=== PATIENT | female | born 1985 | race American Indian/Alaskan Native ===

== ENCOUNTER 2017-10-20 08:29 | Day surgery (SDC) | payer BC ==
[2017-10-17 12:12] VITALS: BMI 34.0
[2017-10-20] MEDS ORDERED: Propofol 10 mg/ml Inj (20 ML) ONE ×2 (11:30→14:17)
[2017-10-20] MEDS ORDERED: Midazolam 2 MG/2 ML VIAL ONE (11:30)
[2017-10-20] MEDS ORDERED: ceFAZolin IV 2 gm in Dextrose 2 GM/50 ML BAG IVPB ONE (11:48)
[2017-10-20] MEDS ORDERED: Neostigmine Methylsulfate 3mg/3ml Syringe IV ONE (14:13)
[2017-10-20] MEDS: HYDROmorphone 0.5 mg/0.5 ml ISec IVP PRN ×3 (15:00→15:51)
[2017-10-20] MEDS ORDERED: Bupivacaine HCl 0.25% PF (10 ml) Inj ONE ×2 (15:50)
--- NOTE | 2017-10-20 16:12 | PCM.ANESB7 ---
Adductor Canal Block - Adductor Canal Block Date of Procedure: 10/20/17 Anesthiologist: Maddi Pre-Procedure Diagnosis: s/p right knee arthroscopy with medial meniscus repair Post-Procedure Diagnosis: same Procedure Performed: Adductor Canal Block Right - Procedure Adductor Canal Block: The procedure was explained to the patient that it is for the post-operative pain management. Consent was obtained after a thorough discussion with the patient regarding the benefits and possible complications of local anesthetic adductor canal block of the femoral nerve. Standard monitors, as defined by the ASA, were applied to the patient. Time-out was held with the PACU nurse to confirm the appropriate block. After applying supplemental oxygen, the patient was placed in supine position with and the operative leg was flexed slightly at the knee and externally rotated as needed, and was kept anatomically stable. The mid-thigh of the right lower extremity was exposed. The ultrasound transducer was then applied transversely along the medial aspect, about midway down the thigh and the femoral artery and vein were identified in appropriate relation with the sartorius muscle. At this time, the femoral nerve was visualized lateral to the femoral artery within the canal. After thorough identification, this area area was prepped with Chloroprep solution. At this point, a #22 gauge Stimuplex 4-inch needle was inserted in-plane in a tygomve-gb-evhbid orientation, and advanced toward the femoral nerve. Advancement was performed carefully under constant direct ultrasound visualization. After negative aspiration, 5cc of 0.25% bupivacaine was injected and this was followed with 25cc of 0.25%bupivacaine . Under ultrasound guidance the local anesthetics were observed spreading around the femoral nerve. The needle was removed intact and sterile dressing was applied. The patient had stable vital signs, was conscious and in no apparent distress. The patient tolerated the femoral nerve block well with stable vital signs.
--- NOTE | 2017-10-20 17:32 | PCM.SURG1 ---
Surgeon's Initial Post Op Note - Surgeon's Notes Surgeon: Andera Bhardwaj MD Clinical Biostatistics Director: Shayan Bronson PA-C Type of Anesthesia: General Endo, [facility] Pre-Operative Diagnosis: Right knee: #1 bucket handle medial meniscus tear ( causing locked knee). #2 complex lateral meniscus tear. #3 ACL complete tear. #4 partial PCL tear. #5 chondromalacia. #6 synovitis. #7 Locked knee/ limited range of motion Operative Findings: Right knee: #1 bucket handle medial meniscus tear (causing locked knee). #2 complex lateral meniscus tear (posterior horn extending to posterior root /w hypermobility and complex white-white zone tearing). #3 ACL complete tear. #4 partial PCL tear (grade 1-2 w/ firm endpoint). 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 #6 synovitis. #7 Locked knee/ limited range of motion Post-Operative Diagnosis: Right knee: #1 bucket handle medial meniscus tear ( causing locked knee). #2 complex lateral meniscus tear (posterior horn extending to posterior root /w hypermobility and complex white-white zone tearing). #3 ACL complete tear. #4 partial PCL tear (grade 1-2 w/ firm endpoint). 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 #6 synovitis. #7 Locked knee / limited range of motion Operation Performed: Right knee Arthroscopic. #1 all inside medial meniscal repair. #2 partial lateral menisectomy w/ stabilization/repair. #3 chondroplasty trochlea. #4 extensive synovectomy & debridement ACL tear. #5 BASILIO. #6 PRP injection Specimen/Specimens Removed: Specimen= none. complications= none. Implants: Linvate[employer] all inside sequent meniscal repair system, 8 kits opened with placement of 26 implants in total for MMR, 4 implants for LMR Estimated Blood Loss: EBL {In ML}: 3 Blood Products Given: N/A Drains Used: No Drains Post-Op Condition: Good Date of Surgery/Procedure: 10/20/17 Time of Surgery/Procedure: 15:00
[2017-10-20 17:59] VITALS: RESP 16
[2017-10-20 18:04] VITALS: BP 136/80; PULSE 86; TEMP 98; O2SAT 97
--- NOTE | 2017-10-21 06:07 | OP ---
PROCEDURE DATE: 10/20/2017 PREOPERATIVE DIAGNOSES: Right knee: 1. Bucket handle medial meniscus tear (causing locked knee). 2. Complex lateral meniscal tear. 3. Anterior cruciate ligament complete tear. 4. Partial posterior cruciate ligament tear. 5. Chondromalacia. 6. Posttraumatic synovitis. 7. Locked knee/limited range of motion (15 degrees to 18 degrees). 8. Partial medial collateral ligament tear. 9. Prominent bone marrow contusion/stress fractures, anterior to mid lateral femoral condyle/ posterolateral proximal tibia/posterior medial proximal tibia. POSTOPERATIVE DIAGNOSES: Right knee: 1. Bucket handle medial meniscus tear (causing locked knee, white zone injury). 2. Complex lateral meniscal tear ( posterior horn complex tear extending to the posterior root with hypermobility and complex white zone tearing) . 3. Complete anterior cruciate ligament tear. 4. Partial posterior cruciate ligament tear (grade 1 to 2 with firm implant). 5. 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 6. Posttraumatic synovitis. 7. Locked knee/limited range of motion preoperatively 15 degrees to 18 degrees flexion arc. 8. Partial medial collateral ligament tear grade 2 firm implant. 9. Bone marrow contusion/stress fracture proximal tibia and lateral femoral condyle. PROCEDURES: Right knee arthroscopic: 1. All-inside bucket handle medial meniscal repair. 2. Partial lateral meniscectomy with stabilization. 3. Chondroplasty trochlea. 4. Extensive synovectomy and debridement of anterior cruciate ligament. 5. Manipulation under anesthesia. 6. Platelet-Rich Plasma injection. SURGEON: Andrea Bhardwaj MD BOOSTER PUMP OILER: Shayan Bronson PA-C. JUSTIFICATION FOR BOOSTER PUMP OILER: Sahyan Bronson is a certified physician certified pathology assistant whose skilled surgical service was an absolute necessity for successful completion of the procedure, as he provided skilled surgical assistance with positioning of the patient, positioning of extremity, management of surgical field, bucket handle meniscus tear reduction, and holding the meniscus tear in optimal position for all-inside meniscal repair successfully being carried out (without [employer] presence this part of the procedure could never have been done without an certified pathology assistant), handling all arthroscopic equipment and facilitating extensive synovectomy, debridement, partial lateral meniscectomy, and other arthroscopic procedures, wound closure, fitting and placement of postop hinged knee brace at the end of the procedure Shayan Bronson was present for the entire case and was in absolute necessity for successful completion of the procedure. TYPE OF ANESTHESIA: General endotracheal anesthesia with a postoperative regional nerve block. ANESTHESIA ADMINISTERED BY: Anesthesia staff in PACU. IMPLANTS: L[employer]atec all-inside Sequent meniscal repair system, 8 tips were opened in total with placement of 26 implants for the medial meniscal repair, 4 implants used for lateral meniscus stabilization. ESTIMATED BLOOD LOSS: 3 mL. DRAINS: None. COMPLICATIONS: None. SPECIMEN: None. DISPOSITION: The patient was extubated and transferred to the PACU in stable condition and tolerated the procedure well. INDICATIONS FOR SURGERY: The patient is a 31-year-old female with no significant past medical history, who presented to the office for the first office under my care on 10/12/2017 with right knee pain since 10/07/2017. The patient states on 10/07/2017, she was walking down the stairs at her home and missed the last step, landing on her right lower extremity/right knee resulting in immediate 10/10 pain and difficulty with ambulation and weightbearing on the right lower extremity. She noticed that she was unable to fully achieve full range of motion of her right knee compared to the contralateral knee since the injury. She went to the emergency room at [facility] where she was evaluated by ER staff and review of imaging, she was diagnosed with a knee sprain and possible ligament damage, and placed in a knee immobilizer and told to follow up with an orthopedic surgeon as an outpatient. Evaluation in the office revealed that she most definitely had a mechanical block to range of motion as well as a ACL tear. She was placed in an [id number] ACL brace for support and instructed to be strict nonweightbearing to the right lower extremity until we were able to review her MRI. She was referred for a STAT MRI done at [facility] on 10/14/2017, which was read as: 1. Complete rupture of anterior cruciate ligament. 2. Associated prominent bone marrow contusion injuries involving the anterior to mid lateral femoral condyle at the articular surface as well as the posterolateral proximal tibia. In addition, there was more prominent subchondral fracturing extending to the articular surface involving the posterior medial proximal tibia at the articular surface with curvilinear ossific density at that level. 3. Prominent thickening with increased signal seen within the proximal attachment of the posterior cruciate ligament suggest of a high grade sprain or partial tear. 4. Complex bucket-handle tear of the medial meniscus involving the anterior horn, body, posterior horn with a flipped component of the tear extending into the intercondylar notch traversing anteriorly to the posterior cruciate ligament. 5. Complex tear of the posterior horn of the lateral meniscus extending to the superior and inferior articular surfaces. 6. Prominent partial tearing of the medial collateral ligament. 7. Large suprapatellar joint effusion. 8. Moderate grade sprain of the posterior attachment of the medial patellar retinaculum. 9. Focal cartilage loss over the posterior medial proximal tibia. 10. Moderate suprapatellar joint effusion with associated synovial debris as well as suprapatellar plica. At her follow up visit in the office on 10/16/2017, I reviewed the MRI findings with her and explained to her the nature of her injury. At that point in time, she was still unable to establish full range of motion of her with essentially a locked knee. Due to her complex constellation of injury, I explained her that most likely she will need a staged procedure. She was indicated for right knee arthroscopic medial meniscus repair versus partial meniscectomy depending on the quality of the tissue and the zone of injury, arthroscopic lateral meniscus repair versus partial and lateral meniscectomy also depending on the quality of the tissue, ACL reconstruction with allograft versus autograft, joint preservation cartilage treatment in the form of chondroplasty versus microfracture or OATS, synovectomy, all other indicated arthroscopic procedures. The risks, benefits, and alternatives of the procedure were discussed in length with the patient, with the risks include not limited to stiffness, especially if the procedure is done as a 1 stage procedure, failure of repair, failure of graft, failure of fixation, development of blood clots including DVT and PE, development of recurrent pain and disability, stiffness, inability to return to preinjury level of activity and occupation, need for further surgery, accelerated chondrolysis, and degenerative wear, chronic pain, and disability, anesthesia reactions including . After answering all of her questions, stated that she understood the risks and wished to proceed with surgery. Once we established that the priority was to perform a medial meniscus repair and to remove the mechanical block from her knee to allow her to regain full range of motion. We started to discuss the eventual need for an ACL reconstruction, especially in the setting of partial MCL and partial PCL tears with instability of both. She also in the setting of this constellation of injury has contusion/stress factor of the proximal tibia and lateral femoral condyle, which could potentially affect the quality of fixation for the delta screw on the tibial side and the quality of her tunnels. With the combination of injury to the bone of the proximal tibia and lateral femoral condyle as well as her lack of range of motion, she understood that she most likely would have a better outcome with a staged procedure consisting of arthroscopic medial and lateral meniscal repairs versus partial meniscectomy and joint preservation cartilage treatment surgery and all related indicated arthroscopic procedures and then after she recovers from that surgery and at least regain the majority of her range of motion, coming back , performing the ACL reconstruction. We would at least wait for the bony contusion/stress factors to heal and for her to regain the majority of her range of motion before we would come back for the second staged procedure, which would be an ACL reconstruction with allograft versus autograft depending on the patient-s preference. I reviewed at length with her diagnosis videos and surgical animation videos and she stated that she had a good understanding of her injury as well as the nature of the bucket-handle tear as well as the ACL injury and reconstruction. She agreed that she most likely with her low tolerance for pain as well as bone contusion and stress factors as well as her preoperative lack of range of motion that staging her surgeries is the best option. She was referred to [facility] and her primary care physician for medical evaluation, and her first stage procedure was scheduled on 10/20/2017 at [facility]. PROCEDURE IN DETAIL: The patient was identified in the preoperative holding area and the right knee was marked for surgery. Once again as described above, the risks, benefits, and alternatives of the procedure were discussed at length with the patient and informed consent was obtained. After a brief discussion with anesthesia staff, perioperative IV antibiotics in the form of 2 grams Ancef were administered and patient was taken to the operating room, placed in a well-padded operating room table with all bony prominences and superficial neurovascular structures well-padded. An initial time-out was done with the surgeon, anesthesia staff, OR staff, all in agreement with the patient, procedure being done, and extremity being operated on. General anesthesia was administered without difficulty or complication. Examination under anesthesia was then carried out. EXAMINATION UNDER ANESTHESIA: Right knee with 2+ effusion, no warmth, no redness, skin intact, limited range of motion with mechanical block from 10 degrees flexion to 90 degrees flexion with firm implant on both sides, significant instability with 3+ Burton with no implants, 3+ anterior drawer and neutral/external rotation/internal rotation, 1 to 2+ posterior drawer with firm implants, 1+ reverse Burton with firm implants, 2+ opening to medial joint line at 30 degrees flexion and valgus stress with firm implants, 0 opening to medial joint line at 0 degrees flexion with valgus stress, negative opening to lateral joint line with 0 degrees flexion or 30 degrees flexion with varus stress, 3+ pivot shift, negative reverse pivot shift, negative posterolateral corner drawer, negative dial test, patella with normal tracking, reproducible medial plica band at 30 degrees flexion engaging patellar medial aspect. Right lower extremity was prepped and draped in standard sterile fashion. Tourniquet was placed high on the right thigh but never inflated. Final time-out was done with the surgeon, anesthesia staff, and OR staff, all in agreement with the patient, procedure being done, and extremity being operated on. Then 50 mL of normal saline was used to insufflate the knee joint. Anterolateral portal was created with stab incision to skin, down to subcutaneous tissue, down to the level of the capsule. Blunt arthroscopic trocar and cannula were inserted into the suprapatellar pouch and insufflation with arthroscopic fluid was begun. Arthroscopic camera was inserted. With the use of spinal needle localization, anteromedial portal was created with stab incision to skin, down to subcutaneous tissue, down to level of the capsule and an accessory cannula was inserted into the anterior medial portal and the knee joint was copiously irrigated for removal of debris and better visualization. With the use of an arthroscopic probe, diagnostic arthroscopy was then carried out. DIAGNOSTIC ARTHROSCOPY: Attention was first turned to towards to the suprapatellar pouch where there was thickened adhesion band in the suprapatellar pouch, patella with no evidence of cartilage injury well seated and centered within the trochlea, trochlea with grade 1 to 2 chondromalacia and cartilage fibrillation at the central aspect of the trochlea with no full-thickness defect seen, medial gutter with a thickened hypertrophic band of synovial tissue representing a thickened medial plica band engaging the medial aspect of the medial femoral condyle as well as the patella extending to the medial retinaculum, all throughout the anterior aspect of the knee joint was thickened posttraumatic hypertrophic synovitis with inflamed synovial tissue throughout the anterior aspect of the knee joint extending into the suprapatellar pouch, significant chromatosis of surrounding soft tissue from previous hematoma formation posttraumatic, medial compartment was then visualized and immediately seen with a bucket-handle medial meniscus tear flipped over around the intercondylar notch and hugging the medial femoral condyle creating obvious mechanical restriction to range of motion. Medial femoral condyle and medial tibial plateau exhibited no evidence of cartilage injury. Intercondylar notch was then visualized immediately seen was a full-thickness ACL tear with remnant stump creating impingement. PCL did have evidence of partial tearing but the majority of the fibers did appear to be intact on visual inspection. Lateral compartment was then visualized and immediately seen with a complex tear of the posterior horn of the lateral meniscus extending with a radial component and complex multiple sub tears from the posterior horn to the posterior root. There was also significant hypermobility of the lateral meniscus overall as there appeared to a peripheral detachment at the red-red zone as well. The complex tearing of the posterior horn into the root appeared to be a white-white zone injury and was not amenable to repair with poor quality tissue and complex nature of the tear. With the help of my certified pathology assistant who was essential for the meniscus bucket-handle repair, we selected a multipurpose ACL guide that had a blunt tip and accessory portal was created for medial at the joint line. Stab incision was made through the skin and subcutaneous tissues down to the level of the capsule and a clamp was used to widened the portal and this blunt curved reduction device was used by my certified pathology assistant to hold the bucket-handle meniscal tear, reduced into its [place] position with good tensioning achieved. We began this complex bucket-handle meniscus repair with the reduction maneuver by my certified pathology assistant and placement of four implants from the [facility] all-inside Sequent meniscal repair system. Working from anterior to posterior four implants were placed with good capsular-sided fixation with alternating vertical and horizontal mattress sutures, fixating the anterior aspect of the bucket-handle tear, starting at the anterior aspect of the tear extending into the [place] good tissue of the medial meniscus as a ripstop stitch. As I stated before good capsular fixation was achieved and indeed the quality of the tissue was amenable to successful repair. We then switched to fixing and starting the posterior horn repair, working from posterior to anterior. At the posterior horn of the bucket-handle tear, it was more of a red-red zone tear. With the use of the [employer] [facility] all-inside Sequent meniscal repair system, four implants were placed with alternating horizontal and vertical mattress sutures at the superior aspect the posterior horn with good posterior capsule fixation. We then repaired the steps for placement of 4 more implants at the central aspect of the posterior horn and the anterior aspect of the posterior horn with good capsular-sided fixation where a total of 12 vertical and horizontal mattress sutures at the superior aspect of this bucket-handle repair of the medial meniscus. We then turned to stabilizing the inferior aspect of the tear as we began to see the disturbance of the hook balance and hook stresses. Eight alternating horizontal and vertical mattress sutures were placed at the posterior horn at the posterior medial corner and the direct posterior horn of the medial meniscus with capsular-sided fixation with placement of eight implants inferiorly. At this point in time, we had a total of 20 implants placed. Once the tension was achieved, the initial posterior horn sutures did not appear as taut as they were not holding the bucket-handle tear reduced any more and to reinforce those sutures four more implants were placed with good capsular-sided fixation at the superior aspect of the posterior horn. At that point in time, we had a total of 26 implants with a successful all-inside medial meniscal repair, establishing good contour to the medial meniscus bucket-handle tear reduction and stability with the posterior medial corner of the medial corner of the medial meniscus reapproximated and with stable fixation to the posterior medial capsule as well. This construct was tested vigorously and found to be stable and I was very pleased with the repair overall. We then turned our attention to performing an extensive synovectomy and debridement of the ACL stump to gain better access to the posterior horn lateral meniscus tear. With the use of arthroscopic shaver and radiofrequency ablation, an extensive synovectomy was carried out of the anterior compartment and the suprapatellar pouch, removing the adhesions and performing a lysis of adhesions at the suprapatellar pouch as well as an extensive synovectomy and resection of the hypertrophic fat pad as well as the symptomatic medial plica band. Once this was carried out with satisfaction, the remnant ACL stump that was causing impingement was then debrided as well and essentially any remnant ACL was removed. Of note, she did have a type A tight intercondylar notch that would need a future notchplasty, when the ACL reconstruction is carried out. Once our debridement and synovectomy was carried up with satisfaction and good hemostasis was achieved, we then turned our attention to lateral compartment. We had good access to the posterior horn and root of the lateral meniscus and closely evaluated the posterior horn tear again. Once again, there were two compartments to the tear. There was a peripheral red-red zone detachment resulting in hypermobility of the lateral meniscus and there was the main tear, which was a large complex tear starting at the posterior horn extending into the posterior root comprising almost the entire posterior horn and root of the lateral meniscus. With the use of an arthroscopic shaver and radiofrequency ablation and meniscal biters, the unstable meniscal fragments were removed and as stated before this was a white-white zone injury with poor quality meniscal tissue that was not amenable to successful repair as the partial lateral meniscectomy was carried out. All in all approximately 35% of the lateral meniscus overall was removed after the partial lateral meniscectomy was carried out resecting almost the 70% of the posterior horn and posterior root with remnant fibers that were stable and intact. To treat the hypermobility of the lateral meniscus and preserve the lateral meniscus tissue that was left, the [employer] all-inside Sequent meniscal repair system was used to stabilize the remnant lateral meniscus and to reduce it back to the capsule and provide some stability. This stabilization of the remnant lateral meniscus posterior horn was carried out successfully with placement of four implants with alternating horizontal and vertical mattress sutures at the superior aspect of the remnant lateral meniscus posterior horn. At the end of the stabilization indeed on close evaluation, the hypermobility of the lateral meniscus was resolved and good stability was achieved. As the majority of the work on the lateral meniscus was a careful partial lateral meniscectomy and the suture that was placed was only a stabilization and to preserve the lateral meniscus tissue that was left. I would code this part of the procedure as a partial lateral meniscectomy and not a lateral meniscal repair as the majority of the work was actually a partial lateral meniscectomy and the sutures placed were only to stabilize the hypermobility and preserve the lateral meniscus tissue that was remaining. I took a close look at the cartilage surface once again and indeed the lateral femoral condyle, lateral tibial plateau, medial femoral condyle, and medial tibial plateau had intact cartilage despite the MRI we think that there was an articular self chondral fracturing. The trochlea did exhibit the area of grade 1 to 2 chondromalacia and with the use of arthroscopic shaver, a chondroplasty of the central aspect of the trochlea was carried out removing the unstable cartilage fragments and fraying. Once this was carried out with satisfaction, we turned to remove any final inflamed synovium and plica tissue. Good hemostasis was achieved and final images were taken and the quality of the bucket-handle medial meniscal repair was examined once again. Once again, the all-inside bucket-handle medial meniscus repair was stable and to satisfaction. Final images were taken and all arthroscopic fluid and debris were removed. The two medial portal being the anterior medial portal and the accessory portal for the medial meniscus reduction maneuver were reapproximated with 2-0 Vicryl suture and 3-0 Monocryl suture for skin. With the help of anesthesia staff, 5 mL of PRP were obtained through a peripheral stick and using the [employer] centrifuge system/ACP system. A 5 mL of PRP were injected intra-articularly through the scope. The anterior lateral portal was then reapproximated with 2-0 Vicryl suture for subcutaneous tissue followed by 3-0 Monocryl suture for skin. Sterile dressings were applied followed by a layer of sterile cast padding from the toes up to the superior thigh, followed by a layer of compressive David wrap from the toes up to the superior thigh. She was then fitted and placed in a postop hinged knee brace provided by my office. Once the brace was in good position and locked in 0 degrees extension and fitted for the patient, she was then awakened from general anesthesia, extubated, and transferred to PACU in stable condition and tolerated the procedure well. DISPOSITION: The patient will be discharged home, once she is recovered from anesthesia. She was given a prescription for Percocet for pain control. She was given a prescription for Lovenox to start postoperative day #1 as DVT prophylaxis. The patient admits to a sedentary lifestyle and has a family history being her sister of blood clots. We discussed DVT prophylaxis choices and she agreed to undergo Lovenox 40 mg once daily as the treatment of choice. She was instructed to keep the dressings clean, dry, and intact until she follows up in the office next week and already has a postoperative appointment set up. She will contact me directly if any questions or concerns. She can be toe touch weightbearing as she does have stress factors of the proximal tibia and distal femur, but is encouraged to be nonweightbearing. She will start physical therapy in few days. Andrea Bhardwaj MD
== END 2017-10-20 18:00 | disposition home or self-care (01) ==
LOC: C.SDS 08:29
PROVIDERS: ATTEND Student in an Organized Health Care Education/Training Program
DX: S83.211A Bucket-handle tear of medial meniscus, current injury, right knee, initial encounter (principal); S83.511A Sprain of anterior cruciate ligament of right knee, initial encounter; S83.271A Complex tear of lateral meniscus, current injury, right knee, initial encounter; M94.261 Chondromalacia, right knee; S83.521A Sprain of posterior cruciate ligament of right knee, initial encounter; S83.281A Other tear of lateral meniscus, current injury, right knee, initial encounter; W10.8XXA Fall (on) (from) other stairs and steps, initial encounter; Y92.008 Other place in unspecified non-institutional (private) residence as the place of occurrence of the external cause; F17.210 Nicotine dependence, cigarettes, uncomplicated
CPT/HCPCS: 29880; J0171; J0690; J1100; J1170; J1885; J2250; J2405; J2704; J2710; J3010

== ENCOUNTER 2017-11-20 10:56 | Inpatient (IN) | payer BC ==
[2017-11-20 10:57] VITALS: BMI 34.0
[2017-11-20] MEDS ORDERED: Sodium Chloride 0.9% 1,000 ML IV STA (12:34)
[2017-11-20] MEDS ORDERED: Heparin 25,000units in D5W 25,000 UNITS/250 ML BAG IV ONE (12:36)
[2017-11-20] MEDS ORDERED: Heparin25000 units/250ml 1/2NS 25,000 UNITS/250 ML BAG IV PRN ×3 (12:45→20:15)
[2017-11-20 12:57] LABS: BASO % 0.6 % (0.0-2.0); EOS # 0.2 K/uL (0.0-0.7); EOS % 3.6 % (0.0-4.0); HEMOGLOBIN 12.5 g/dL (11.0-16.0); LYMPH # 2.3 K/uL (1.0-4.3); LYMPH % 34.8 % (20.0-40.0); MEAN CELL VOLUME 81.2 fL (81.0-99.0); MEAN CORPUSCULAR HEMOGLOBIN 26.5 pg (27.0-31.0); MEAN CORPUSCULAR HGB CONC 32.7 g/dL (33.0-37.0); MONO # 0.4 K/uL (0.0-0.8); MONO % 6.3 % (0.0-10.0); NEUT # 3.6 K/uL (1.8-7.0); NEUT % 54.7 % (50.0-75.0); NRBC % 0.1 % (0.0-2.0); RBC 4.7 Mil/uL (3.80-5.20); RED CELL DISTRIBUTION WIDTH 13.6 % (11.5-14.5); WHITE BLOOD COUNT 6.6 K/uL (4.8-10.8)
[2017-11-20] MEDS ORDERED: Heparin25000 units/250ml 1/2NS 25,000 UNITS/250 ML BAG IV ONE (13:00)
[2017-11-20 13:04] LABS: INR 0.9; PROTHROMBIN TIME 10.1 SECONDS (9.7-12.2)
[2017-11-20 13:07] LABS: ALB/GLOB RATIO 1.2 (1.0-2.1); ALBUMIN 4.2 g/dL (3.5-5.0); ALT/SGPT 32 U/L (9-52); AST/SGOT 29 U/L (14-36); BLOOD UREA NITROGEN 10 mg/dL (7-17); CALCIUM 9.1 mg/dl (8.6-10.4); GFR AFRICAN-AMERICAN > 60; GFR NON-AFRICAN AMERICAN > 60
[2017-11-20 13:27] LABS: HCG,QUALITATIVE URINE NEGATIVE (NEGATIVE)
[2017-11-20 13:31] LABS: SQUAMOUS EPITHIAL 12 /hpf (0-5); URINE BACTERIA RARE (<OCC); URINE BILIRUBIN NEGATIVE (NEGATIVE); URINE BLOOD NEGATIVE (NEGATIVE); URINE CLARITY Hazy (Clear); URINE COLOR Yellow (YELLOW); URINE GLUCOSE (UA) NORMAL (Normal); URINE LEUKOCYTE ESTERASE 2+ Leu/uL (Negative); URINE PROTEIN NEGATIVE (NEGATIVE); URINE UROBILINOGEN NORMAL mg/dL (0.2-1.0)
[2017-11-20] MEDS ORDERED: Potassium Chloride 20 mEq ER Tab PO ONE (13:32)
--- NOTE | 2017-11-20 14:58 | C.PDOC ---
History Of Present Illness Patient states she had a menisceal surgery on her right knee on 10/20/17 and two weeks later, she had developed right calf pain which she thought was from the surgery. She was applying an ice pack to her calf and saw Dr. Jamari Ovalle the orthopedic surgeon who did the repair who sent her for a duplex scan; patient informed she had DVT in her right popliteal, posterior tibial and oerneal vein. Patient is now complaining of a sharp pain to her left chest which radiates to her back with inspiration. She denies any weakness, numbness or tingling. No other complaints. Time Seen by Provider: 11/20/17 11:30 Chief Complaint (Nursing): Lower Extremity Problem/Injury History Per: Patient History/Exam Limitations: no limitations Onset/Duration Of Symptoms: Persistent Current Symptoms Are (Timing): Still Present Past Medical History Reviewed: Historical Data, Nursing Documentation, Vital Signs Vital Signs: Last Vital Signs Temp 98.8 F 11/20/17 15:37 Pulse 72 11/20/17 15:37 Resp 16 11/20/17 15:37 BP 112/76 11/20/17 15:37 Pulse Ox 99 11/20/17 16:42 - Medical History PMH: Deep Vein Thrombosis Denies: Chronic Kidney Disease Other Surgeries: right knee menisceal repair Family History: States: Unknown Family Hx - Social History Hx Alcohol Use: Yes Hx Substance Use: No - Immunization History Hx Influenza Vaccination: No Hx Pneumococcal Vaccination: No Review Of Systems Except As Marked, All Systems Reviewed And Found Negative. Constitutional: Negative for: Fever, Weakness Cardiovascular: Positive for: Chest Pain Respiratory: Negative for: Shortness of Breath Musculoskeletal: Positive for: Other (right calf pain) Physical Exam - Physical Exam Appears: Non-toxic Skin: Normal Color Head: Normacephalic Eye(s): bilateral: Normal Inspection Oral Mucosa: Moist Neck: Normal ROM, Supple Chest: Symmetrical Cardiovascular: Rhythm Regular Respiratory: Normal Breath Sounds, No Wheezing Back: Normal Inspection Extremity: Normal ROM, Calf Tenderness (right) Neurological/Psych: Oriented x3 ED Course And Treatment - Laboratory Results Result Diagrams: 11/20/17 12:48 11/20/17 12:48 ECG: Interpreted By Me ECG Interpretation: Normal, No Acute Changes Interpretation Of ECG: Sinus arrhythmia Rate From EC O2 Sat by Pulse Oximetry: 99 (RA) Pulse Ox Interpretation: Normal - CT Scan/US CT Angio Chest Other Rad Studies (CT/US): Radiology Report Reviewed CT/US Interpretation: CTA chest PE protocol. Indication: pleuritic chest pain, right LE DVT. Technique: Contiguous axial images were obtained through the chest with intravenous contrast enhancement. Sagittal and coronal reconstructions were generated and reviewed. This CT exam was performed using 1 or more of the following dose reduction techniques: Automated exposure control , adjustment of the MAA and/or kV according to patient size, and/or use of iterative reconstruction technique. IV Contrast: 100 mL Visipaque IV. . Radiation dose (DLP): 454.56 MGy-cm. Comparison: Chest x-ray performed 10/17/17. Findings: Visualized portions of the inferior thyroid gland appear unremarkable. The mediastinal and hilar vascular structures appear within normal limits. The heart appears within normal limits of size. Pulmonary emboli within the right mid to lower lobe right pulmonary artery branches. No central pulmonary embolus evident. No focal consolidation. No pleural effusion. No pneumothorax. No suspicious pulmonary nodules measuring greater than 5 mm. Limited visualized portions of the upper abdomen appear grossly unremarkable. No acute osseous abnormality is detected. Impression: Pulmonary emboli within the right mid to lower lobe right pulmonary artery branches. Findings discussed with MAXIMILIANO Barr on 11/20/17 at 421pm. Progress Note: Labs reviewed and within normal limits. Considering patient's recent diagnosis of DVT and current presentation, Heparin and IV Fluids given. CT Angio Chest reviewed and indicates a PE. Patient informed of plan for admission and she is agreeable. - Physician Consult Information Time Consulting Physician Contacted: 16:02 Outcome Of Conversation: Case discussed with Dr. Reese and patient to be admitted to telemetry due to a pulmonary embolism. Disposition - Disposition Disposition: HOSPITALIZED Disposition Time: 16:42 Condition: FAIR - Clinical Impression Clinical Impression: Deep venous thrombosis of lower extremity, Pulmonary embolism - PA / DRESSAGE JUDGE / Resident Statement MD/DO has reviewed & agrees with the documentation as recorded. - Scribe Statement The provider has reviewed the documentation as recorded by the Scribe (Rochelle Benitez) Provider Attestation: All medical record entries made by the Scribe were at my direction and personally dictated by me. I have reviewed the chart and agree that the record accurately reflects my personal performance of the history, physical exam, medical decision making, and the department course for this patient. I have also personally directed, reviewed, and agree with the discharge instructions and disposition. Decision To Admit - Pt Status Changed To: Hospital Disposition Of: Inpatient - Admit Certification Admit to Inpatient:: After my assessment, the patient will require hospitalization for at least two midnights. This is because of the severity of symptoms shown, intensity of services needed, and/or the medical risk in this patient being treated as an outpatient. - InPatient: Physician Admission Certification: I certify that this patient requires 2 or more midnights of care for the following reason:: Patient will need more than 2 days of anticoagulation - . Bed Request Type: Telemetry Admitting Physician: Skyla Reese Patient Diagnosis: Deep venous thrombosis of lower extremity, Pulmonary embolism
[2017-11-20] MEDS ORDERED: Iodixanol 320 MG/ML 100 ML BOTTLE IV ONE (15:38)
--- NOTE | 2017-11-20 16:29 | CT ---
CTA chest PE protocol Indication: pleuritic chest pain, right LE DVT Technique: Contiguous axial images were obtained through the chest with intravenous contrast enhancement. Sagittal and coronal reconstructions were generated and reviewed. This CT exam was performed using 1 or more of the following dose reduction techniques: Automated exposure control, adjustment of the MAA and/or kV according to patient size, and/or use of iterative reconstruction technique. IV Contrast: 100 mL Visipaque IV Radiation dose (DLP): 454.56 MGy-cm. Comparison: Chest x-ray performed 10/17/17 Findings: Visualized portions of the inferior thyroid gland appear unremarkable. The mediastinal and hilar vascular structures appear within normal limits. The heart appears within normal limits of size. Pulmonary emboli within the right mid to lower lobe right pulmonary artery branches. No central pulmonary embolus evident. No focal consolidation. No pleural effusion. No pneumothorax. No suspicious pulmonary nodules measuring greater than 5 mm. Limited visualized portions of the upper abdomen appear grossly unremarkable. No acute osseous abnormality is detected. Impression: Pulmonary emboli within the right mid to lower lobe right pulmonary artery branches. Findings discussed with MAXIMILIANO Barr on 11/20/17 at 421pm.
--- NOTE | 2017-11-20 17:57 | CP.PCM.HP ---
<Jesenia Betancourt DO - Last Filed: 11/20/17 18:29> History of Present Illness - History of Present Illness History of Present Illness: CC: "I had pain in my right calf and sanchez" Patient is a 32 year old female s/p right knee arthroscopic meniscus repair who presents to the ED after having outpatient lower extremity venous dopplers with findings positive for DVT in right leg. Patient's issues with her right knee began on 10/07/17 when she missed bottom step of a flight of stairs and fell. She was seen in [facility] ED and placed in knee immobilizer with instructions to follow up with orthopedic surgeon. She was seen by Dr. Chavez as outpatient who ordered MRI which showed ACL rupture, PCL tear, bucket handle tear of medial meniscus, partial tearing MCL (see full report). Surgery was planned to be in two stages: stage 1 to correct meniscus issues and stage 2 planned for 12/29/17 for ACL repair. Right knee arthroscopic surgery for meniscus repair was done 10/20/17 at [facility]. Patient was discharged with Lovenox 40mg SC daily for two weeks post-op. Patient states she did use all of the medication but may have missed a day once or twice. Patient was also doing physical therapy three times a week. Patient states that at her second post-op visit on 11/14/[address] Chavez she mentioned her complaints of sanchez and calf pain and tenderness for two weeks duration. She was given a prescription for lower extremity venous doppler by Dr. Chavez. Patient states that due to scheduling difficulties she could not come in for ultrasound until today, 11/20/17. Patient states she had been using Vicoprofen and ice packs to deal with leg pain. She also admits to one week history of left-sided pleuritic chest pain with deep inspiration that radiates to her back. CTA was performed in ED due to these symptoms with result positive for pulmonary embolus. Patient denies headache, light-headed or dizzy feeling, palpitations, dyspnea, cough. She admits to right leg swelling as well but denies erythema. She also admits to urinary frequency. PMD: [place] PMHx: denies prior history medical issues; admits to one miscarriage at 6 months gestation with unknown cause Meds: Vicoprofen (post operative), denies oral contraceptives or IUD usage Fam Hx: niece diagnosed with pulmonary embolus last year- thought to be secondary to oral contraceptive use; sister with diabetes; father of brain aneurysm approximately age 50; mother of renal failure- uncertain origin- approximately age 50; denies history of miscarriages in her family PSHx: right knee arthroscopic surgery 10/20/17 SocialHx: lives in 2nd floor apartment (no elevator) with 4 year old son; smokes 1 pack cigarettes every 3 days since age 15; drinks cognac/ wine on weekends; denies drugs; works for [employer], currently on disability due to current issues with knee, formerly worked as pharmacy ancillary Allergies: bactrim Present on Admission - Present on Admission Any Indicators Present on Admission: Yes History of DVT/PE: Yes Review of Systems - Constitutional Constitutional: absent: Chills, Fatigue, Fever, Headache, Lethargy - EENT Ears: absent: Dizziness - Cardiovascular Cardiovascular: Chest Pain (with deep inspiration). absent: Dyspnea, Lightheadedness, Palpitations, Paroxysmal Nocturnal Dyspnea, Rapid Heart Rate - Respiratory Respiratory: absent: Cough, Hemoptysis - Gastrointestinal Gastrointestinal: absent: Constipation, Diarrhea, Nausea, Vomiting - Genitourinary Genitourinary: Urinary Frequency - Musculoskeletal Additional comments: right leg swelling and pain - Integumentary Integumentary: Swelling - Neurological Neurological: absent: Dizziness, Lack of Coordination, Paresthesias, Syncope, Vertigo - Hematologic/Lymphatic Hematologic: absent: Easy Bleeding, Easy Bruising Past Patient History - Past Medical History & Family History Past Medical History?: Yes - Past Social History Smoking Status: Light Smoker < 10 Cigarettes Daily - CARDIAC Hx Cardiac Disorders: No - PULMONARY Hx Respiratory Disorders: No - NEUROLOGICAL Hx Neurological Disorder: No - HEENT Hx HEENT Problems: Yes Other/Comment: HX: "ULCER TO LEFT CORNEA-I JUST TORN IT RECENTLY. IT WAS BECAUSE OF MY CONTACT LENS. I'M ON EYE DROPS."(TODAY IS 10/17/17) - RENAL Hx Chronic Kidney Disease: No - ENDOCRINE/METABOLIC Hx Endocrine Disorders: No - HEMATOLOGICAL/ONCOLOGICAL Hx Blood Disorders: No - INTEGUMENTARY Hx Dermatological Problems: No - MUSCULOSKELETAL/RHEUMATOLOGICAL Hx Musculoskeletal Disorders: Yes Other/Comment: HX: RIGHT KNEE LATERAL AND MEDIAL MENISCUS TEAR; ACL TEAR - GASTROINTESTINAL Hx Gastrointestinal Disorders: No - GENITOURINARY/GYNECOLOGICAL Hx Genitourinary Disorders: No - PSYCHIATRIC Hx Substance Use: No - SURGICAL HISTORY Hx Surgeries: Yes Other/Comment: HX: TOP - ANESTHESIA Hx Anesthesia: Yes Hx Anesthesia Reactions: No Hx Malignant Hyperthermia: No Meds Allergies/Adverse Reactions: Allergies Allergy/AdvReac Type Severity Reaction Status Date / Time Sulfa (Sulfonamide Allergy RASH Verified 11/20/17 11:10 Antibiotics) sulfamethoxazole Allergy RASH Verified 11/20/17 11:10 [From Bactrim] trimethoprim [From Bactrim] Allergy RASH Verified 11/20/17 11:10 Physical Exam - Constitutional Appears: Non-toxic, No Acute Distress - Head Exam Head Exam: ATRAUMATIC, NORMOCEPHALIC - Eye Exam Eye Exam: EOMI - ENT Exam ENT Exam: Mucous Membranes Moist - Neck Exam Neck exam: Positive for: Normal Inspection - Expanded Neck Exam Expanded Expanded Neck Exam: absent: Carotid Bruit - Respiratory Exam Respiratory Exam: Decreased Breath Sounds (decreased inspiratory effort), NORMAL BREATHING PATTERN. absent: Rales, Rhonchi, Wheezes - Cardiovascular Exam Cardiovascular Exam: RRR, +S1, +S2. absent: Irregular Rhythm, JVD - GI/Abdominal Exam GI & Abdominal Exam: Normal Bowel Sounds, Soft. absent: Tenderness - Extremities Exam Additional comments: right knee wrapped in PEREZ bandage right calf and sanchez tender on palpation, no pitting edema, no erythema, warm to touch - Neurological Exam Neurological exam: Alert, Oriented x3 - Psychiatric Exam Psychiatric exam: Normal Affect - Skin Skin Exam: Dry, Warm Results - Vital Signs Recent Vital Signs: Last Vital Signs Temp 98.8 F 11/20/17 15:37 Pulse 72 11/20/17 15:37 Resp 16 11/20/17 15:37 BP 112/76 11/20/17 15:37 Pulse Ox 99 11/20/17 16:42 - Labs Result Diagrams: 11/20/17 12:48 11/20/17 12:48 Labs: Laboratory Results - last 24 hr 11/20/17 11/20/17 11/20/17 12:48 12:48 12:48 WBC 6.6 RBC 4.70 Hgb 12.5 Hct 38.1 MCV 81.2 MCH 26.5 L MCHC 32.7 L RDW 13.6 Plt Count 311 MPV 8.0 Neut % (Auto) 54.7 Lymph % (Auto) 34.8 [place] % (Auto) 6.3 Eos % (Auto) 3.6 Baso % (Auto) 0.6 Neut # (Auto) 3.6 Lymph # (Auto) 2.3 [place] # (Auto) 0.4 Eos # (Auto) 0.2 Baso # (Auto) 0.0 PT 10.1 INR 0.9 APTT 31 Sodium 140 Potassium 3.9 Chloride 102 Carbon Dioxide 28 Anion Gap 15 BUN 10 Creatinine 0.7 Est GFR ( Amer) > 60 Est GFR (Non-Af Amer) > 60 Random Glucose 81 Calcium 9.1 Total Bilirubin 0.6 AST 29 ALT 32 Alkaline Phosphatase 78 Total Protein 7.7 Albumin 4.2 Globulin 3.4 Albumin/Globulin Ratio 1.2 Urine Color Urine Clarity Urine pH Ur Specific [place] Urine Protein Urine Glucose (UA) Urine Ketones Urine Blood Urine Nitrate Urine Bilirubin Urine Urobilinogen Ur Leukocyte Esterase Urine WBC (Auto) Urine RBC (Auto) Ur Squamous Epith Cells Urine Bacteria Urine HCG, Qual 11/20/17 11/20/17 13:12 15:25 WBC RBC Hgb Hct MCV MCH MCHC RDW Plt Count MPV Neut % (Auto) Lymph % (Auto) [place] % (Auto) Eos % (Auto) Baso % (Auto) Neut # (Auto) Lymph # (Auto) [place] # (Auto) Eos # (Auto) Baso # (Auto) PT INR APTT 30 Sodium Potassium Chloride Carbon Dioxide Anion Gap BUN Creatinine Est GFR ( Amer) Est GFR (Non-Af Amer) Random Glucose Calcium Total Bilirubin AST ALT Alkaline Phosphatase Total Protein Albumin Globulin Albumin/Globulin Ratio Urine Color Yellow Urine Clarity Hazy Urine pH 5.0 Ur Specific [place] 1.021 Urine Protein Negative Urine Glucose (UA) Normal Urine Ketones Negative Urine Blood Negative Urine Nitrate Negative Urine Bilirubin Negative Urine Urobilinogen Normal Ur Leukocyte Esterase 2+ H Urine WBC (Auto) 4 Urine RBC (Auto) 3 Ur Squamous Epith Cells 12 H Urine Bacteria Rare Urine HCG, Qual Negative Assessment & Plan - Assessment and Plan (Free Text) Assessment: 32 year old female s/p right knee arthroscopy 10/20/17 with new findings of right leg DVT and pulmonary embolus Pulmonary Embolus CTA chest: Pulmonary emboli within the right mid to lower lobe right pulmonary artery branches. No central pulmonary embolus evident. No focal consolidation. No pleural effusion. No pneumothorax. No suspicious pulmonary nodules measuring greater than 5 mm. (see full report) Patient received heparin bolus in ED and is on heparin drip EKG reviewed and is normal sinus with no changes from pre-op EKG performed on 10/17/17 will check echo to rule out right heart strain Pulmonology, Dr. Whitlock, consulted- help appreciated Right lower extremity DVT Outpatient LE venous doppler performed 11/20/17: right leg with totally occluding DVT of right popliteal, posterior tibial, peroneal veins with severe reduction of venous return. Left leg no evidence DVT (see full report) Patient on heparin drip Vascular surgery consulted, Dr. Ramirez- help appreciated R/O Hypercoaguability patient had provoking event- right knee arthroscopic surgery 10/20/17 with post- operative Lovenox for 14 days, however patient admits to occasional missed doses positive family history- niece with pulmonary embolus one year ago (considered secondary to OCP use) will order hypercoaguable workup except for protein C&S as she is already on heparin drip: factor V Leiden, prothrombin gene mutation, antithrombin III, antiphospholipid antibody, BRIELLE w/ reflex Heme-onc consulted, Dr. Castellanos- tanya appreciated Urinary frequency first UA contaminated, will repeat urinalysis with culture Prophylactic measure heparin drip SCD to left leg only holding PT/OT at this time nicotine patch Plan and medical management discussed with attending physician <Skyla Reese V - Last Filed: 11/20/17 22:25> Results - Vital Signs Recent Vital Signs: Last Vital Signs Temp 98 F 11/20/17 20:47 Pulse 78 11/20/17 20:47 Resp 18 11/20/17 20:47 BP 126/69 11/20/17 20:47 Pulse Ox 98 11/20/17 20:47 - Labs Result Diagrams: 11/20/17 12:48 11/20/17 12:48 Labs: Laboratory Results - last 24 hr 11/20/17 11/20/17 11/20/17 12:48 12:48 12:48 WBC 6.6 RBC 4.70 Hgb 12.5 Hct 38.1 MCV 81.2 MCH 26.5 L MCHC 32.7 L RDW 13.6 Plt Count 311 MPV 8.0 Neut % (Auto) 54.7 Lymph % (Auto) 34.8 [place] % (Auto) 6.3 Eos % (Auto) 3.6 Baso % (Auto) 0.6 Neut # (Auto) 3.6 Lymph # (Auto) 2.3 [place] # (Auto) 0.4 Eos # (Auto) 0.2 Baso # (Auto) 0.0 PT 10.1 INR 0.9 APTT 31 Sodium 140 Potassium 3.9 Chloride 102 Carbon Dioxide 28 Anion Gap 15 BUN 10 Creatinine 0.7 Est GFR ( Amer) > 60 Est GFR (Non-Af Amer) > 60 Random Glucose 81 Calcium 9.1 Total Bilirubin 0.6 AST 29 ALT 32 Alkaline Phosphatase 78 Total Protein 7.7 Albumin 4.2 Globulin 3.4 Albumin/Globulin Ratio 1.2 Urine Color Urine Clarity Urine pH Ur Specific [place] Urine Protein Urine Glucose (UA) Urine Ketones Urine Blood Urine Nitrate Urine Bilirubin Urine Urobilinogen Ur Leukocyte Esterase Urine WBC (Auto) Urine RBC (Auto) Ur Squamous Epith Cells Urine Bacteria Urine HCG, Qual 11/20/17 11/20/17 11/20/17 13:12 15:25 18:54 WBC RBC Hgb Hct MCV MCH MCHC RDW Plt Count MPV Neut % (Auto) Lymph % (Auto) [place] % (Auto) Eos % (Auto) Baso % (Auto) Neut # (Auto) Lymph # (Auto) [place] # (Auto) Eos # (Auto) Baso # (Auto) PT INR APTT 30 147 H* D Sodium Potassium Chloride Carbon Dioxide Anion Gap BUN Creatinine Est GFR ( Amer) Est GFR (Non-Af Amer) Random Glucose Calcium Total Bilirubin AST ALT Alkaline Phosphatase Total Protein Albumin Globulin Albumin/Globulin Ratio Urine Color Yellow Urine Clarity Hazy Urine pH 5.0 Ur Specific [place] 1.021 Urine Protein Negative Urine Glucose (UA) Normal Urine Ketones Negative Urine Blood Negative Urine Nitrate Negative Urine Bilirubin Negative Urine Urobilinogen Normal Ur Leukocyte Esterase 2+ H Urine WBC (Auto) 4 Urine RBC (Auto) 3 Ur Squamous Epith Cells 12 H Urine Bacteria Rare Urine HCG, Qual Negative Attending/Attestation - Attestation I have personally seen and examined this patient.: Yes I have fully participated in the care of the patient.: Yes I have reviewed all pertinent clinical information: Yes Notes (Text): Patient seen, examined and case discussed with medical educator. Patient seen in [facility] Bed 15 in the Emergency Room approximately 5:50PM. Patient has had recent orthopedic procedure reports she took Lovenox 40mg subqdaily for 14 days post-operative; though she reports she would forget a day couple of times. Patient reports subsequent right lower leg pain in subsequent follow-up orthopedic visits and recently had venous doppler done which confirmed extensive DVT. Patient also reporting pleuritic chest pain, about one week duration recently. Patient noted to have CT chest showing pulmonary embolus. EKG reviewed no acute changes, no deep S wave noted. Will order echocardiogram to see if any right heart strain. Patient is not on any OCPS/no IUDS. She has had total 4 pregnancies in the past , 1 full term, 2 elective abortions, and 1 still born. Patient has had a niece with PE while on OCPs. Patient is a current smoker, started at age 16, 1 pack last 3 days, reports she smoked this morning. She was educated at bedside in regards to smoking risk advisor to cancer, clots etc. We will consult heme-onc, vascular surgery, and pulmonary. We will see if patient will need intervention for DVT and see if candidate for IVC filter. Patient ordered for hypercoaguable workup given young age, extensive DVT over short period of time. though it appears to be provoked. Cannot order protein C/ S given patient has already received heparin bolus/drip in the ED. Assessment/Plan 1) Pulmonary Embolus * Admit to telemetry * CTA chest: Pulmonary emboli within the right mid to lower lobe right pulmonary artery branches. No central pulmonary embolus evident. No focal consolidation. No pleural effusion. No pneumothorax. No suspicious pulmonary nodules measuring greater than 5 mm. (see full report) * Patient received heparin bolus in ED and is on heparin drip * Note heparin drip has built in protocol in order in terms of adjust and followup PTT q6 hours. * EKG reviewed and is normal sinus with no changes from pre-op EKG performed on 10/17/17 * will check echo to rule out right heart strain * Pulmonology, Dr. Whitlock, consulted- help appreciated * Resident has called and left message with service * Hematology-oncology on board, help appreciated 2) Right lower extremity DVT * Outpatient LE venous doppler performed 11/20/17: right leg with totally occluding DVT of right popliteal, posterior tibial, peroneal veins with severe reduction of venous return. Left leg no evidence DVT (see full report) * Patient on heparin drip * Vascular surgery consulted, Dr. Ramirez- tanya appreciated 3) Hypercoaguability workup? * patient had provoking event- right knee arthroscopic surgery 10/20/17 with post- operative Lovenox for 14 days, however patient admits to occasional missed dose * positive family history- niece with pulmonary embolus one year ago ( considered secondary to OCP use) * will order hypercoaguable workup except for protein C&S as she is already on heparin drip: factor V Leiden, prothrombin gene mutation, antithrombin III, antiphospholipid antibody, BRIELLE w/ reflex; I have cancelled antithrombin III since this will be affected by heparin as well * Heme-onc consulted, Dr. Castellanos- help appreciated 4) Urinary frequency * first UA contaminated, will repeat urinalysis with culture 5) Tobacco abuse * Discussed risks associated with cigarette smoking including cancer and clot formation 6) Prophylactic measure * heparin drip * SCD to left leg only * holding PT/OT at this time * nicotine patch
[2017-11-20] MEDS ORDERED: Sodium Chloride 0.9% 1,000 ML IV SCH (18:15)
--- NOTE | 2017-11-20 21:06 | CP.PCM.CON ---
History of Present Illness - History of Present Illness History of Present Illness: 32 year old female with a history of recent right knee orthopedic surgery, found to have RLE DVT with PE. The patient was treated with prophylactic lovenox for 14 days post orthopedic surgery. She notes to participating with rehab but has been fairly sedentary after rehab. Due to continued pain and swelling her leg, she underwent an US of the leg and prompted her admission. She is currently on a heparin drip. She denies shortness of breath and chest pain. Past medical history: tobacco abuse, meniscus and ACL injury RLE Past surgical history: Right orthopedic knee surgery Family history: Niece had PE while on control Social history: 1/2 ppd x 15 years, social ETOH, denies illicit drug use. Allergies: Sulfa, bactrim Review of systems: All remaining review of systems including HEENT, cardiovascular, respiratory, gastrointestinal, genitourinary, musculoskeletal, dermatologic, neurologic, and psychiatric are negative unless mentioned in the HPI. Past Patient History - Past Medical History & Family History Past Medical History?: Yes - Past Social History Smoking Status: Light Smoker < 10 Cigarettes Daily - CARDIAC Hx Cardiac Disorders: No - PULMONARY Hx Respiratory Disorders: No - NEUROLOGICAL Hx Neurological Disorder: No - HEENT Hx HEENT Problems: Yes Other/Comment: HX: "ULCER TO LEFT CORNEA-I JUST TORN IT RECENTLY. IT WAS BECAUSE OF MY CONTACT LENS. I'M ON EYE DROPS."(TODAY IS 10/17/17) - RENAL Hx Chronic Kidney Disease: No - ENDOCRINE/METABOLIC Hx Endocrine Disorders: No - HEMATOLOGICAL/ONCOLOGICAL Hx Blood Disorders: No - INTEGUMENTARY Hx Dermatological Problems: No - MUSCULOSKELETAL/RHEUMATOLOGICAL Hx Musculoskeletal Disorders: Yes Other/Comment: HX: RIGHT KNEE LATERAL AND MEDIAL MENISCUS TEAR; ACL TEAR - GASTROINTESTINAL Hx Gastrointestinal Disorders: No - GENITOURINARY/GYNECOLOGICAL Hx Genitourinary Disorders: No - PSYCHIATRIC Hx Substance Use: No - SURGICAL HISTORY Hx Surgeries: Yes Other/Comment: HX: TOP - ANESTHESIA Hx Anesthesia: Yes Hx Anesthesia Reactions: No Hx Malignant Hyperthermia: No Meds Allergies/Adverse Reactions: Allergies Allergy/AdvReac Type Severity Reaction Status Date / Time Sulfa (Sulfonamide Allergy RASH Verified 11/20/17 11:10 Antibiotics) sulfamethoxazole Allergy RASH Verified 11/20/17 11:10 [From Bactrim] trimethoprim [From Bactrim] Allergy RASH Verified 11/20/17 11:10 - Medications Medications: Current Medications Sodium Chloride (Sodium Chloride 0.9%) 1,000 mls @ 50 mls/hr IV .Q20H MEIR Stop: 11/21/17 00:00 Last Admin: 11/20/17 18:18 Dose: 50 mls/hr Heparin Sodium/Sodium Chloride (Heparin 00511 Units/250ml 1/2 Normal Saline) 25 ,000 units in 250 mls @ 15.649 mls/hr IV .[id number] PRN; Protocol; 15 UNITS/KG/HR PRN Reason: ADJUST RATE PER PROTOCOL Last Admin: 11/20/17 20:45 Dose: 15 units/kg/hr, 15.649 mls/hr Ketorolac Tromethamine (Toradol) 30 mg IVP Q6 PRN PRN Reason: Pain, moderate (4-7) Last Admin: 11/20/17 19:37 Dose: 30 mg Nicotine (Nicoderm Cq) 1 patch TD DAILY MEIR Physical Exam - Head Exam Head Exam: ATRAUMATIC - Eye Exam Eye Exam: Normal appearance - ENT Exam ENT Exam: Mucous Membranes Dry - Respiratory Exam Respiratory Exam: NORMAL BREATHING PATTERN - Cardiovascular Exam Cardiovascular Exam: +S1, +S2 - GI/Abdominal Exam GI & Abdominal Exam: Normal Bowel Sounds - Extremities Exam Extremities exam: Positive for: pedal edema - Neurological Exam Neurological exam: Oriented x3 - Psychiatric Exam Psychiatric exam: Normal Affect, Normal Mood - Skin Skin Exam: Warm Results - Vital Signs Recent Vital Signs: Last Vital Signs Temp 98 F 11/20/17 20:47 Pulse 78 11/20/17 20:47 Resp 18 11/20/17 20:47 BP 126/69 11/20/17 20:47 Pulse Ox 98 11/20/17 20:47 - Labs Result Diagrams: 11/20/17 12:48 11/20/17 12:48 Labs: Laboratory Results - last 24 hr 11/20/17 11/20/17 11/20/17 12:48 12:48 12:48 WBC 6.6 RBC 4.70 Hgb 12.5 Hct 38.1 MCV 81.2 MCH 26.5 L MCHC 32.7 L RDW 13.6 Plt Count 311 MPV 8.0 Neut % (Auto) 54.7 Lymph % (Auto) 34.8 [place] % (Auto) 6.3 Eos % (Auto) 3.6 Baso % (Auto) 0.6 Neut # (Auto) 3.6 Lymph # (Auto) 2.3 [place] # (Auto) 0.4 Eos # (Auto) 0.2 Baso # (Auto) 0.0 PT 10.1 INR 0.9 APTT 31 Sodium 140 Potassium 3.9 Chloride 102 Carbon Dioxide 28 Anion Gap 15 BUN 10 Creatinine 0.7 Est GFR ( Amer) > 60 Est GFR (Non-Af Amer) > 60 Random Glucose 81 Calcium 9.1 Total Bilirubin 0.6 AST 29 ALT 32 Alkaline Phosphatase 78 Total Protein 7.7 Albumin 4.2 Globulin 3.4 Albumin/Globulin Ratio 1.2 Urine Color Urine Clarity Urine pH Ur Specific [place] Urine Protein Urine Glucose (UA) Urine Ketones Urine Blood Urine Nitrate Urine Bilirubin Urine Urobilinogen Ur Leukocyte Esterase Urine WBC (Auto) Urine RBC (Auto) Ur Squamous Epith Cells Urine Bacteria Urine HCG, Qual 11/20/17 11/20/17 11/20/17 13:12 15:25 18:54 WBC RBC Hgb Hct MCV MCH MCHC RDW Plt Count MPV Neut % (Auto) Lymph % (Auto) [place] % (Auto) Eos % (Auto) Baso % (Auto) Neut # (Auto) Lymph # (Auto) [place] # (Auto) Eos # (Auto) Baso # (Auto) PT INR APTT 30 147 H* D Sodium Potassium Chloride Carbon Dioxide Anion Gap BUN Creatinine Est GFR ( Amer) Est GFR (Non-Af Amer) Random Glucose Calcium Total Bilirubin AST ALT Alkaline Phosphatase Total Protein Albumin Globulin Albumin/Globulin Ratio Urine Color Yellow Urine Clarity Hazy Urine pH 5.0 Ur Specific [place] 1.021 Urine Protein Negative Urine Glucose (UA) Normal Urine Ketones Negative Urine Blood Negative Urine Nitrate Negative Urine Bilirubin Negative Urine Urobilinogen Normal Ur Leukocyte Esterase 2+ H Urine WBC (Auto) 4 Urine RBC (Auto) 3 Ur Squamous Epith Cells 12 H Urine Bacteria Rare Urine HCG, Qual Negative Assessment & Plan (1) Pulmonary embolism Assessment and Plan: embolization from RLE DVT; provoked from recent orthopedic surgery and immobility rule out inherited thrombophilia; prothrombin gene mutation, factor V leiden and antiphospholipid Ab panel. Protein C+S and antithrombin III to be checked at a later date. therapeutic anticoagulation recommend retrievable IVC filter; pt wants to think about it Status: Acute (2) Coagulopathy Assessment and Plan: secondary to anticoagulation Status: Acute (3) Tobacco abuse Assessment and Plan: smoking cessation discussed at length Thank you for this interesting consult. Status: Acute
--- NOTE | 2017-11-20 21:15 | CP.PCM.CON ---
History of Present Illness - History of Present Illness History of Present Illness: Vascular Surgery: Dr. Ramirez Pt is a 32F who is s/p R knee arthroscopic meniscus repair on 10/20/17. Pt was discharged on Lovenox 40mgSC daily, however admits to missing some doses but finishing the 2 week supply. She has been in a leg brace and NWB on the R leg since surgery which has limited her mobility. Pt states that last week she started having pain in her RLE especially her calf/sanchez and mentioned this to her surgeon who ordered a lower extremity venous Doppler which she was able to get done today. Doppler showed acute thrombus of RLE extremity in the popliteal , posterior tibial & peroneal veins. In the ER pt, also complained of pleuritic chest pain and CTA was obtained which showed R PE. Currently, pt is laying comfortably in ER bed. States she continues to have pain in the R leg around her calf. Denies other complaints. Denies N/V, F/C, chest pain or SOB. PMHx: denies PSHx: R knee arthroscopic surgery SocialHx: smokes 1 pack/3days for 15+ years, social EtOH Review of Systems - Review of Systems All systems: reviewed and no additional remarkable complaints except (as per HPI ) Past Patient History - Past Medical History & Family History Past Medical History?: Yes - Past Social History Smoking Status: Light Smoker < 10 Cigarettes Daily - CARDIAC Hx Cardiac Disorders: No - PULMONARY Hx Respiratory Disorders: No - NEUROLOGICAL Hx Neurological Disorder: No - HEENT Hx HEENT Problems: Yes Other/Comment: HX: "ULCER TO LEFT CORNEA-I JUST TORN IT RECENTLY. IT WAS BECAUSE OF MY CONTACT LENS. I'M ON EYE DROPS."(TODAY IS 10/17/17) - RENAL Hx Chronic Kidney Disease: No - ENDOCRINE/METABOLIC Hx Endocrine Disorders: No - HEMATOLOGICAL/ONCOLOGICAL Hx Blood Disorders: No - INTEGUMENTARY Hx Dermatological Problems: No - MUSCULOSKELETAL/RHEUMATOLOGICAL Hx Musculoskeletal Disorders: Yes Other/Comment: HX: RIGHT KNEE LATERAL AND MEDIAL MENISCUS TEAR; ACL TEAR - GASTROINTESTINAL Hx Gastrointestinal Disorders: No - GENITOURINARY/GYNECOLOGICAL Hx Genitourinary Disorders: No - PSYCHIATRIC Hx Substance Use: No - SURGICAL HISTORY Hx Surgeries: Yes Other/Comment: HX: TOP - ANESTHESIA Hx Anesthesia: Yes Hx Anesthesia Reactions: No Hx Malignant Hyperthermia: No Meds Allergies/Adverse Reactions: Allergies Allergy/AdvReac Type Severity Reaction Status Date / Time Sulfa (Sulfonamide Allergy RASH Verified 11/20/17 11:10 Antibiotics) sulfamethoxazole Allergy RASH Verified 11/20/17 11:10 [From Bactrim] trimethoprim [From Bactrim] Allergy RASH Verified 11/20/17 11:10 - Medications Medications: Current Medications Sodium Chloride (Sodium Chloride 0.9%) 1,000 mls @ 50 mls/hr IV .Q20H MEIR Stop: 11/21/17 00:00 Last Admin: 11/20/17 18:18 Dose: 50 mls/hr Heparin Sodium/Sodium Chloride (Heparin 21297 Units/250ml 1/2 Normal Saline) 25 ,000 units in 250 mls @ 15.649 mls/hr IV .[id number] PRN; Protocol; 15 UNITS/KG/HR PRN Reason: ADJUST RATE PER PROTOCOL Last Admin: 11/20/17 20:45 Dose: 15 units/kg/hr, 15.649 mls/hr Ketorolac Tromethamine (Toradol) 30 mg IVP Q6 PRN PRN Reason: Pain, moderate (4-7) Last Admin: 11/20/17 19:37 Dose: 30 mg Nicotine (Nicoderm Cq) 1 patch TD DAILY MEIR Physical Exam - Constitutional Appears: Well, No Acute Distress - Head Exam Head Exam: ATRAUMATIC, NORMOCEPHALIC - Eye Exam Eye Exam: Normal appearance - ENT Exam ENT Exam: Mucous Membranes Moist - Respiratory Exam Respiratory Exam: NORMAL BREATHING PATTERN - Cardiovascular Exam Cardiovascular Exam: RRR - GI/Abdominal Exam GI & Abdominal Exam: Soft. absent: Tenderness - Extremities Exam Additional comments: R knee with dressing C/D/I, R LE ttp, 2+ distal PT/DP pulses b/l, no swelling or edema noted in b/l LE. - Neurological Exam Neurological exam: Alert, Oriented x3 - Skin Skin Exam: Dry, Warm Results - Vital Signs Recent Vital Signs: Last Vital Signs Temp 98 F 11/20/17 20:47 Pulse 78 11/20/17 20:47 Resp 18 11/20/17 20:47 BP 126/69 11/20/17 20:47 Pulse Ox 98 11/20/17 20:47 - Labs Result Diagrams: 11/20/17 12:48 11/20/17 12:48 Labs: Laboratory Results - last 24 hr 11/20/17 11/20/17 11/20/17 12:48 12:48 12:48 WBC 6.6 RBC 4.70 Hgb 12.5 Hct 38.1 MCV 81.2 MCH 26.5 L MCHC 32.7 L RDW 13.6 Plt Count 311 MPV 8.0 Neut % (Auto) 54.7 Lymph % (Auto) 34.8 [place] % (Auto) 6.3 Eos % (Auto) 3.6 Baso % (Auto) 0.6 Neut # (Auto) 3.6 Lymph # (Auto) 2.3 [place] # (Auto) 0.4 Eos # (Auto) 0.2 Baso # (Auto) 0.0 PT 10.1 INR 0.9 APTT 31 Sodium 140 Potassium 3.9 Chloride 102 Carbon Dioxide 28 Anion Gap 15 BUN 10 Creatinine 0.7 Est GFR ( Amer) > 60 Est GFR (Non-Af Amer) > 60 Random Glucose 81 Calcium 9.1 Total Bilirubin 0.6 AST 29 ALT 32 Alkaline Phosphatase 78 Total Protein 7.7 Albumin 4.2 Globulin 3.4 Albumin/Globulin Ratio 1.2 Urine Color Urine Clarity Urine pH Ur Specific [place] Urine Protein Urine Glucose (UA) Urine Ketones Urine Blood Urine Nitrate Urine Bilirubin Urine Urobilinogen Ur Leukocyte Esterase Urine WBC (Auto) Urine RBC (Auto) Ur Squamous Epith Cells Urine Bacteria Urine HCG, Qual 11/20/17 11/20/17 11/20/17 13:12 15:25 18:54 WBC RBC Hgb Hct MCV MCH MCHC RDW Plt Count MPV Neut % (Auto) Lymph % (Auto) [place] % (Auto) Eos % (Auto) Baso % (Auto) Neut # (Auto) Lymph # (Auto) [place] # (Auto) Eos # (Auto) Baso # (Auto) PT INR APTT 30 147 H* D Sodium Potassium Chloride Carbon Dioxide Anion Gap BUN Creatinine Est GFR ( Amer) Est GFR (Non-Af Amer) Random Glucose Calcium Total Bilirubin AST ALT Alkaline Phosphatase Total Protein Albumin Globulin Albumin/Globulin Ratio Urine Color Yellow Urine Clarity Hazy Urine pH 5.0 Ur Specific [place] 1.021 Urine Protein Negative Urine Glucose (UA) Normal Urine Ketones Negative Urine Blood Negative Urine Nitrate Negative Urine Bilirubin Negative Urine Urobilinogen Normal Ur Leukocyte Esterase 2+ H Urine WBC (Auto) 4 Urine RBC (Auto) 3 Ur Squamous Epith Cells 12 H Urine Bacteria Rare Urine HCG, Qual Negative Assessment & Plan - Assessment and Plan (Free Text) Assessment: 32F with RLE provoked DVT and R PE Plan: - cont IV heparin - no surgical intervention at this time - will monitor - d/w Dr. James Arrington, PGY-3
[2017-11-21] MEDS: Heparin25000 units/250ml 1/2NS 25,000 UNITS/250 ML BAG IV PRN ×2 (02:30→10:46)
[2017-11-21 03:00] VITALS: RESP 20
[2017-11-21 07:27] LABS: SQUAMOUS EPITHIAL 4 /hpf (0-5); URINE BACTERIA RARE (<OCC); URINE BILIRUBIN NEGATIVE (NEGATIVE); URINE BLOOD NEGATIVE (NEGATIVE); URINE CLARITY Clear (Clear); URINE COLOR Yellow (YELLOW); URINE GLUCOSE (UA) NORMAL (Normal); URINE LEUKOCYTE ESTERASE NEG Leu/uL (Negative); URINE PROTEIN NEGATIVE (NEGATIVE); URINE UROBILINOGEN NORMAL mg/dL (0.2-1.0)
[2017-11-21 07:28] LABS: BASO % 0.7 % (0.0-2.0); EOS # 0.3 K/uL (0.0-0.7); EOS % 4.9 % (0.0-4.0); HEMOGLOBIN 11.4 g/dL (11.0-16.0); LYMPH # 2.4 K/uL (1.0-4.3); LYMPH % 38.3 % (20.0-40.0); MEAN CELL VOLUME 82.1 fL (81.0-99.0); MEAN CORPUSCULAR HGB CONC 32.9 g/dL (33.0-37.0); MEAN PLATELET VOLUME 8.2 fL (7.2-11.7); MONO # 0.5 K/uL (0.0-0.8); MONO % 7.3 % (0.0-10.0); NEUT % 48.8 % (50.0-75.0); NRBC % 0.1 % (0.0-2.0); RBC 4.23 Mil/uL (3.80-5.20); RED CELL DISTRIBUTION WIDTH 13.6 % (11.5-14.5); WHITE BLOOD COUNT 6.2 K/uL (4.8-10.8)
[2017-11-21 07:46] LABS: ALB/GLOB RATIO 1.2 (1.0-2.1); ALBUMIN 3.4 g/dL (3.5-5.0); ALT/SGPT 21 U/L (9-52); AST/SGOT 20 U/L (14-36); BLOOD UREA NITROGEN 9 mg/dL (7-17); CALCIUM 8.1 mg/dl (8.6-10.4); GFR AFRICAN-AMERICAN > 60; GFR NON-AFRICAN AMERICAN > 60
--- NOTE | 2017-11-21 09:57 | CP.PCM.PN ---
Subjective - Date & Time of Evaluation Date of Evaluation: 11/21/17 Time of Evaluation: 09:53 Objective - Vital Signs/Intake and Output Vital Signs (last 24 hours): Temp Pulse Resp BP Pulse Ox 98.3 F 65 20 100/60 100 11/21/17 08:18 11/21/17 08:18 11/21/17 08:18 11/21/17 08:18 11/21/17 08:18 Intake and Output: 11/21/17 11/21/17 06:59 18:59 Intake Total 65 Balance 65 - Medications Medications: Current Medications Heparin Sodium/Sodium Chloride (Heparin 36648 Units/250ml 1/2 Normal Saline) 25 ,000 units in 250 mls @ 12.519 mls/hr IV .[id number] PRN; Protocol; 12 UNITS/KG/HR PRN Reason: ADJUST RATE PER PROTOCOL Last Admin: 11/21/17 02:30 Dose: 12 units/kg/hr, 12.519 mls/hr Nicotine (Nicoderm Cq) 1 patch TD DAILY MEIR - Labs Labs: 11/21/17 07:09 11/21/17 07:09 PT 10.1 SECONDS (9.7-12.2) 11/20/17 12:48 INR 0.9 11/20/17 12:48 APTT 85 SECONDS (21-34) H D 11/21/17 07:30 - Constitutional Appears: Non-toxic - Head Exam Head Exam: ATRAUMATIC, NORMAL INSPECTION, NORMOCEPHALIC - Eye Exam Eye Exam: EOMI, Normal appearance Pupil Exam: NORMAL ACCOMODATION, PERRL - ENT Exam ENT Exam: Mucous Membranes Moist, Normal Exam - Neck Exam Neck Exam: Full ROM. absent: Thyromegaly - Respiratory Exam Respiratory Exam: Clear to Ausculation Bilateral, NORMAL BREATHING PATTERN. absent: Accessory Muscle Use - Cardiovascular Exam Cardiovascular Exam: REGULAR RHYTHM, +S1, +S2. absent: Bradycardia, Tachycardia - GI/Abdominal Exam GI & Abdominal Exam: Soft, Normal Bowel Sounds. absent: Diminished Bowel Sounds , Hypoactive Bowel Sounds - Extremities Exam Extremities Exam: Full ROM, Normal Capillary Refill, Normal Inspection. absent : Pedal Edema - Back Exam Back Exam: Full ROM, NORMAL INSPECTION - Neurological Exam Neurological Exam: CN II-XII Intact, Normal Gait, Oriented x3 - Psychiatric Exam Psychiatric exam: Normal Affect, Normal Mood - Skin Skin Exam: Dry, Intact, Normal Color, Warm Assessment and Plan - Assessment and Plan (Free Text) Assessment: 32 year old female s/p right knee arthroscopy 10/20/17 with new findings of right leg DVT and pulmonary embolus Pulmonary Embolus CTA chest: Pulmonary emboli within the right mid to lower lobe right pulmonary artery branches. No central pulmonary embolus evident. No focal consolidation. No pleural effusion. No pneumothorax. No suspicious pulmonary nodules measuring greater than 5 mm. (see full report) Patient received heparin bolus in ED and is on heparin drip EKG reviewed and is normal sinus with no changes from pre-op EKG performed on 10/17/17 will check echo to rule out right heart strain Pulmonology consult: Dr. Whitlock Right lower extremity DVT 11/20 Outpatient LE venous doppler: right leg with totally occluding DVT of right popliteal, posterior tibial, peroneal veins with severe reduction of venous return. Left leg no evidence DVT (full report in NOV) Patient on heparin drip Vascular surgery consult: Dr. Ramirez, no surgical intervention at this time, continue medical management of DVT and PE R/O Hypercoaguability patient had provoking event- right knee arthroscopic surgery 10/20/17 with post- operative Lovenox for 14 days, however patient admits to occasional missed doses positive family history- niece with pulmonary embolus one year ago (considered secondary to OCP use) Will order hypercoaguable workup except for protein C&S as she is already on heparin drip: factor V Leiden, prothrombin gene mutation, antithrombin III, antiphospholipid antibody, BRIELLE w/ reflex Heme-onc consulted, Dr. Castellanos Urinary frequency first UA contaminated, will repeat urinalysis with culture Prophylactic measure Heparin 12 u/kg/hr SCD to left leg only holding PT/OT at this time nicotine patch discussed with Dr. Mary Ann Jimenez, DO PGY1
--- NOTE | 2017-11-21 10:35 | CP.PCM.DIS ---
<Aurora Jimenez - Last Filed: 11/21/17 19:11> Provider - Provider Date of Admission: 11/20/17 16:40 Attending physician: Skyla Reese DO Consults: Dr. Chavez, Dr. Whitlock, Dr. Castellanos, Dr. Ramirez Time Spent in preparation of Discharge (in minutes): 35 Hospital Course - Lab Results Lab Results: Most Recent Lab Values WBC 6.2 K/uL (4.8-10.8) 11/21/17 07:09 RBC 4.23 Mil/uL (3.80-5.20) 11/21/17 07:09 Hgb 11.4 g/dL (11.0-16.0) 11/21/17 07:09 Hct 34.8 % (34.0-47.0) 11/21/17 07:09 MCV 82.1 fL (81.0-99.0) 11/21/17 07:09 MCH 27.0 pg (27.0-31.0) 11/21/17 07:09 MCHC 32.9 g/dL (33.0-37.0) L 11/21/17 07:09 RDW 13.6 % (11.5-14.5) 11/21/17 07:09 Plt Count 278 K/uL (130-400) 11/21/17 07:09 MPV 8.2 fL (7.2-11.7) 11/21/17 07:09 Neut % (Auto) 48.8 % (50.0-75.0) L 11/21/17 07:09 Lymph % (Auto) 38.3 % (20.0-40.0) 11/21/17 07:09 Rogers % (Auto) 7.3 % (0.0-10.0) 11/21/17 07:09 Eos % (Auto) 4.9 % (0.0-4.0) H 11/21/17 07:09 Baso % (Auto) 0.7 % (0.0-2.0) 11/21/17 07:09 Neut # (Auto) 3.0 K/uL (1.8-7.0) 11/21/17 07:09 Lymph # (Auto) 2.4 K/uL (1.0-4.3) 11/21/17 07:09 Rogers # (Auto) 0.5 K/uL (0.0-0.8) 11/21/17 07:09 Eos # (Auto) 0.3 K/uL (0.0-0.7) 11/21/17 07:09 Baso # (Auto) 0.0 K/uL (0.0-0.2) 11/21/17 07:09 PT 10.1 SECONDS (9.7-12.2) 11/20/17 12:48 INR 0.9 11/20/17 12:48 APTT 85 SECONDS (21-34) H D 11/21/17 07:30 Sodium 141 mmol/L (132-148) 11/21/17 07:09 Potassium 3.7 mmol/L (3.6-5.2) 11/21/17 07:09 Chloride 105 mmol/L (98-107) 11/21/17 07:09 Carbon Dioxide 25 mmol/L (22-30) 11/21/17 07:09 Anion Gap 14 (10-20) 11/21/17 07:09 BUN 9 mg/dL (7-17) 11/21/17 07:09 Creatinine 0.6 mg/dL (0.7-1.2) L 11/21/17 07:09 Est GFR ( Amer) > 60 11/21/17 07:09 Est GFR (Non-Af Amer) > 60 11/21/17 07:09 Random Glucose 86 mg/dL (65-105) 11/21/17 07:09 Calcium 8.1 mg/dl (8.6-10.4) L 11/21/17 07:09 Phosphorus 3.2 mg/dL (2.5-4.5) 11/21/17 07:09 Magnesium 2.0 mg/dL (1.6-2.3) 11/21/17 07:09 Total Bilirubin 0.2 mg/dL (0.2-1.3) 11/21/17 07:09 AST 20 U/L (14-36) 11/21/17 07:09 ALT 21 U/L (9-52) 11/21/17 07:09 Alkaline Phosphatase 77 U/L (38-126) 11/21/17 07:09 Total Protein 6.2 g/dL (6.3-8.3) L 11/21/17 07:09 Albumin 3.4 g/dL (3.5-5.0) L 11/21/17 07:09 Globulin 2.7 gm/dL (2.2-3.9) 11/21/17 07:09 Albumin/Globulin Ratio 1.2 (1.0-2.1) 11/21/17 07:09 Urine Color Yellow (YELLOW) 11/21/17 06:52 Urine Clarity Clear (Clear) 11/21/17 06:52 Urine pH 6.0 (5.0-8.0) 11/21/17 06:52 Ur Specific Delcambre 1.029 (1.003-1.030) 11/21/17 06:52 Urine Protein Negative mg/dL (NEGATIVE) 11/21/17 06:52 Urine Glucose (UA) Normal mg/dL (Normal) 11/21/17 06:52 Urine Ketones Negative mg/dL (NEGATIVE) 11/21/17 06:52 Urine Blood Negative (NEGATIVE) 11/21/17 06:52 Urine Nitrate Negative (NEGATIVE) 11/21/17 06:52 Urine Bilirubin Negative (NEGATIVE) 11/21/17 06:52 Urine Urobilinogen Normal mg/dL (0.2-1.0) 11/21/17 06:52 Ur Leukocyte Esterase Neg Chapito/uL (Negative) 11/21/17 06:52 Urine WBC (Auto) 1 /hpf (0-5) 11/21/17 06:52 Urine RBC (Auto) 2 /hpf (0-3) 11/21/17 06:52 Ur Squamous Epith Cells 4 /hpf (0-5) 11/21/17 06:52 Urine Bacteria Rare (<OCC) 11/21/17 06:52 Urine HCG, Qual Negative (NEGATIVE) 11/20/17 13:12 - Hospital Course Hospital Course: Discharge Note for Dr. Reese Consults: Dr. Chavez, Dr. Whitlock, Dr. Castellanos, Dr. Ramirez HPI 32 year old female s/p right knee arthroscopic meniscus repair 10/20/17 who presents to the ED after having outpatient lower extremity venous dopplers with findings positive for DVT in right leg. Patient's issues with her right knee began on 10/07/17 when she missed bottom step of a flight of stairs and fell. She was seen in [facility] ED and placed in knee immobilizer with instructions to follow up with orthopedic surgeon. She was seen by Dr. Chavez as outpatient who ordered MRI which showed ACL rupture, PCL tear, bucket handle tear of medial meniscus, partial tearing MCL (see full report). Surgery was planned to be in two stages: stage 1 to correct meniscus issues and stage 2 planned for for ACL repair. Right knee arthroscopic surgery for meniscus repair was done 10/20/17 at [facility]. Patient was discharged with Lovenox 40mg SC daily for two weeks post-op. Patient states she did use all of the medication but may have missed a day once or twice. Patient was also doing physical therapy three times a week. Patient states that at her second post-op visit on 11/14/[address] Chavez she mentioned her complaints of sanchez and calf pain and tenderness for two weeks duration. She was given a prescription for lower extremity venous doppler by Dr. Chavez. Patient states that due to scheduling difficulties she could not come in for ultrasound until today, . Patient states she had been using Vicoprofen and ice packs to deal with leg pain. She also admits to one week history of left-sided pleuritic chest pain with deep inspiration that radiates to her back. CTA was performed in ED due to these symptoms with result positive for pulmonary embolus. Patient denies headache, light-headed or dizzy feeling, palpitations, dyspnea, cough. She admits to right leg swelling as well but denies erythema. She also admits to urinary frequency. Hospital Course Patient received heparin bolus in ED, and placed on heparin drip 12 u/kg/hr. Patient seen and examined at bedside this morning. No acute events overnight. Patient state her pain is present today and is located in posterior popliteal region, and calf region. Dr. Castellanos was consulted and bloodwork was drawn for hypercoagulable workup. Patient denies shortness of breath, coughing, nausea, vomiting. Patient admits to pleuritic chest pain. Patient states she saw surgery team earlier and they said there's nothing to do surgically at this time , recommend to continue medical management of DVT PE. Echo was done and showed _ ___. Pain medication was changed to Motrin 800mg PO TID PRN pain Patient was discharged with instructions to follow up outpatient BRIELLE screen IFA w/ reflex Antithrombin III, cancelled due to patient is on heparin which will affect results Factor V Leiden Lupus anticoag w/ reflex Prothrombin Gene Analysis - Date & Time of H&P Date of H&P: 11/21/17 Time of H&P: 13:00 Discharge Exam - Head Exam Head Exam: ATRAUMATIC, NORMAL INSPECTION, NORMOCEPHALIC - Eye Exam Eye Exam: EOMI, Normal appearance Pupil Exam: NORMAL ACCOMODATION, PERRL - ENT Exam ENT Exam: Mucous Membranes Moist - Neck Exam Neck exam: Full Rom - Respiratory Exam Respiratory Exam: Clear to PA & Lateral, NORMAL BREATHING PATTERN. absent: Accessory Muscle Use, UNREMARKABLE - Cardiovascular Exam Cardiovascular Exam: REGULAR RHYTHM, +S1, +S2. absent: Bradycardia, Tachycardia - GI/Abdominal Exam GI & Abdominal Exam: Normal Bowel Sounds, Soft. absent: Unremarkable - Extremities Exam Extremities exam: normal capillary refill, pedal pulses present (bilaterally DP , PT and AT) Additional comments: tenderness to palpation of right posterior popliteal region and right calf. Patient states it's a sharp pain on palpation. no ecchymosis, discoloration, erythema, pallor, decreased warmth. - Back Exam Back exam: FULL ROM - Neurological Exam Neurological exam: CN II-XII Intact, Normal Gait, Oriented x3 - Skin Skin Exam: Dry, Normal Color, Warm Discharge Plan - Discharge Medications Prescriptions: Apixaban [Eliquis] 5 mg PO BID #42 tab Apixaban [Eliquis] 10 mg PO BID #14 tab Nicotine [Nicoderm Cq Clear] 7 mg TD DAILY #30 ml oxyCODONE/Acetaminophen [Percocet 5/325 mg Tab] 1 ea PO Q6H #20 tab - Follow Up Plan Condition: STABLE Disposition: HOME/ ROUTINE Instructions: Quitting Smoking for Teens and Young Adults, Deep Vein Thrombosis (Blood Clots in the Legs) (DC), Pulmonary Embolism (Blood Clot in the Lungs) (DC), Apixaban, Nicotine, Oxycodone and Acetaminophen Additional Instructions: follow up with heme onc Dr. Castellanos in one week Take Eliquis as directed. follow up for refills with Dr. Castellanos or Primary Card doctor return to Emergency room if right leg becomes more swollen, loss of muscle strength, increased numbness, tingling, cold right leg or right foot, increased shortness of breath Referrals: Hipolito Castellanos MD [Staff Provider] - Juan Alberto Castillo MD [Medical Doctor] - Jose Alfredo Whitlock MD [Staff Provider] - Song Ramirez Jr., MD [Staff Provider] - <Mary AnnSkyla Sutton - Last Filed: 11/22/17 07:23> Provider - Provider Date of Admission: 11/20/17 16:40 Attending physician: Skyla Reese DO Diagnosis - Discharge Diagnosis (1) Deep venous thrombosis of lower extremity Status: Acute Comment: Right lower extremity DVT+. Discharged on Eliquis. Patient to follow- up with ortho in regards to PT; when to resume session. Patient provided percocet 1 tab PO Q 6 H PRN severe pain (20 tabs/0 refills). I did discuss with patient in regards to addictive potential of narcotic pain medication and she is aware of side effects. (2) Pulmonary embolism Status: Acute Comment: Patient seen and evaluated by pulmonary; recommended to come see in the office as outpatient. Heme-onc and pulm agree for Eliquis on discharge. Patient will think about IVC filter; she has Dr. Ramirez's information provided (3) S/P right knee arthroscopy Status: Acute Comment: Patient seen by orthopedic PA as well as orthopedic surgeron had called her while in house. Patient was scheduled for second part of her surgery in December however, given PE and DVT to be arrange at later date. This to be coordinated between ortho, heme-onc given patient will be on Eliquis. (4) Tobacco abuse Status: Acute Comment: Smoking cessation provided. Patient is amenable to nictone patch. patient was on low dose nictone patch while in the hospital. (5) Prophylactic measure Status: Acute Comment: Patient is familar with Eliquis; her niece was on it. I spoke with her pharmacy, [facility], they will honor Eliquis coupon for 30 days. Patient given script for the initial 7 day course of Eliquis 10mg PO BID, then to transition to Eliquis 5mg PO BID (1 month/supply given). Patient advised she will need to follow-up with heme-onc for refills. Hospital Course - Lab Results Lab Results: Most Recent Lab Values WBC 6.2 K/uL (4.8-10.8) 11/21/17 07:09 RBC 4.23 Mil/uL (3.80-5.20) 11/21/17 07:09 Hgb 11.4 g/dL (11.0-16.0) 11/21/17 07:09 Hct 34.8 % (34.0-47.0) 11/21/17 07:09 MCV 82.1 fL (81.0-99.0) 11/21/17 07:09 MCH 27.0 pg (27.0-31.0) 11/21/17 07:09 MCHC 32.9 g/dL (33.0-37.0) L 11/21/17 07:09 RDW 13.6 % (11.5-14.5) 11/21/17 07:09 Plt Count 278 K/uL (130-400) 11/21/17 07:09 MPV 8.2 fL (7.2-11.7) 11/21/17 07:09 Neut % (Auto) 48.8 % (50.0-75.0) L 11/21/17 07:09 Lymph % (Auto) 38.3 % (20.0-40.0) 11/21/17 07:09 Rogers % (Auto) 7.3 % (0.0-10.0) 11/21/17 07:09 Eos % (Auto) 4.9 % (0.0-4.0) H 11/21/17 07:09 Baso % (Auto) 0.7 % (0.0-2.0) 11/21/17 07:09 Neut # (Auto) 3.0 K/uL (1.8-7.0) 11/21/17 07:09 Lymph # (Auto) 2.4 K/uL (1.0-4.3) 11/21/17 07:09 Rogers # (Auto) 0.5 K/uL (0.0-0.8) 11/21/17 07:09 Eos # (Auto) 0.3 K/uL (0.0-0.7) 11/21/17 07:09 Baso # (Auto) 0.0 K/uL (0.0-0.2) 11/21/17 07:09 PT 10.1 SECONDS (9.7-12.2) 11/20/17 12:48 INR 0.9 11/20/17 12:48 APTT 85 SECONDS (21-34) H 11/21/17 14:11 Sodium 141 mmol/L (132-148) 11/21/17 07:09 Potassium 3.7 mmol/L (3.6-5.2) 11/21/17 07:09 Chloride 105 mmol/L (98-107) 11/21/17 07:09 Carbon Dioxide 25 mmol/L (22-30) 11/21/17 07:09 Anion Gap 14 (10-20) 11/21/17 07:09 BUN 9 mg/dL (7-17) 11/21/17 07:09 Creatinine 0.6 mg/dL (0.7-1.2) L 11/21/17 07:09 Est GFR ( Amer) > 60 11/21/17 07:09 Est GFR (Non-Af Amer) > 60 11/21/17 07:09 Random Glucose 86 mg/dL (65-105) 11/21/17 07:09 Calcium 8.1 mg/dl (8.6-10.4) L 11/21/17 07:09 Phosphorus 3.2 mg/dL (2.5-4.5) 11/21/17 07:09 Magnesium 2.0 mg/dL (1.6-2.3) 11/21/17 07:09 Total Bilirubin 0.2 mg/dL (0.2-1.3) 11/21/17 07:09 AST 20 U/L (14-36) 11/21/17 07:09 ALT 21 U/L (9-52) 11/21/17 07:09 Alkaline Phosphatase 77 U/L (38-126) 11/21/17 07:09 Total Protein 6.2 g/dL (6.3-8.3) L 11/21/17 07:09 Albumin 3.4 g/dL (3.5-5.0) L 11/21/17 07:09 Globulin 2.7 gm/dL (2.2-3.9) 11/21/17 07:09 Albumin/Globulin Ratio 1.2 (1.0-2.1) 11/21/17 07:09 Triglycerides 69 mg/dL (0-149) 11/21/17 07:09 Cholesterol 191 mg/dL (0-199) 11/21/17 07:09 LDL Cholesterol Direct 111 mg/dL (0-129) 11/21/17 07:09 HDL Cholesterol 56 mg/dL (30-70) 11/21/17 07:09 Urine Color Yellow (YELLOW) 11/21/17 06:52 Urine Clarity Clear (Clear) 11/21/17 06:52 Urine pH 6.0 (5.0-8.0) 11/21/17 06:52 Ur Specific Delcambre 1.029 (1.003-1.030) 11/21/17 06:52 Urine Protein Negative mg/dL (NEGATIVE) 11/21/17 06:52 Urine Glucose (UA) Normal mg/dL (Normal) 11/21/17 06:52 Urine Ketones Negative mg/dL (NEGATIVE) 11/21/17 06:52 Urine Blood Negative (NEGATIVE) 11/21/17 06:52 Urine Nitrate Negative (NEGATIVE) 11/21/17 06:52 Urine Bilirubin Negative (NEGATIVE) 11/21/17 06:52 Urine Urobilinogen Normal mg/dL (0.2-1.0) 11/21/17 06:52 Ur Leukocyte Esterase Neg Chapito/uL (Negative) 11/21/17 06:52 Urine WBC (Auto) 1 /hpf (0-5) 11/21/17 06:52 Urine RBC (Auto) 2 /hpf (0-3) 11/21/17 06:52 Ur Squamous Epith Cells 4 /hpf (0-5) 11/21/17 06:52 Urine Bacteria Rare (<OCC) 11/21/17 06:52 Urine HCG, Qual Negative (NEGATIVE) 11/20/17 13:12 Attending/Attestation - Attestation I have personally seen and examined this patient.: Yes I have fully participated in the care of the patient.: Yes I have reviewed all pertinent clinical information, including history, physical exam and plan: Yes Notes (Text): This is a late computer entry for 11/21/2017. Patient seen, examined, case discussed with medical practice manager. Patient patient denies acute complaints except for right lower extremity pain secondary to DVT. Patient was shown by surgical appliances salesperson how to elevate the leg to reduce swelling to the to the extremity. Patient was seen by pulmonary, hematology, and vascular surgery. Per surgery no further surgical intervention at this time. Hematology has recommended for a reversible IVC filter. Patient needs time to think about IVC filter. Patient is aware she will still need to be on blood thinners given that she has PE and DVT. Patient was seen by pulmonary, and is stable from their standpoint patient can follow-up in the office. Patient was instructed to stop smoking given that its additional risk factor to promote clots as well as known cancer risk. Patient is amenable and is also amenable to nicotine patches to curb smoking. Discussed with specialists, preference for Eliquis for anticoagulation of choice I have spoken with patient's pharmacy, [facility] which will be able to provide patient with with Eliquis prescription. Patient provided a prescription for 7 days of L Elisabeth milligram by mouth twice a day, and then to transition to 5 mg by mouth twice a day for 1 month. Patient structured to get refill for all of this with him at [facility] oncologist next week. Patient will need to coordinate with orthopedic surgeon for second part of surgery when stable since she will be on Elqiuis. Patient provided 5 day prescription for Percocet 1 tab by mouth every 6 when necessary severe pain dispensed 20 tabs no refill. Patient was originally taking Vicoprofen given by orthopedic given her knee pain. Patient was instructed about the addictive potential narcotic medication and not to be dependent on it unless pain is severe. Patient recommended to follow up with PMD , leader assembler, pulmonary, and orthopedic surgeon upon discharge. Discharge instructions discussed personally with the patient. Patient verbalized understanding and agreed with plan. Consultants: 1) Dr Stepan Castellanos (Hematology) 2) Dr. Sherman (pulmonary) 3) Dr. Ramirez (Vascular surgery) 4) Dr. Jamari Ovalle (orthopedic surgeon) This is a summary of patient's hospitalization please refer to EMR for further details.
[2017-11-21 10:39] LABS: HDL CHOLESTEROL 56 mg/dL (30-70)
[2017-11-21 10:50] LABS: LDL CHOLESTEROL 111 mg/dL (0-129)
--- NOTE | 2017-11-21 15:05 | CP.PCM.PN ---
Subjective - Date & Time of Evaluation Date of Evaluation: 11/21/17 Time of Evaluation: 15:04 - Subjective Subjective: Progress Note Patient received heparin bolus in ED, and placed on heparin drip 12 u/kg/hr. Patient seen and examined at bedside this morning. No acute events overnight. Patient state her pain is present today and is located in posterior popliteal region, and calf region. Dr. Castellanos was consulted and bloodwork was drawn for hypercoagulable workup. Patient denies shortness of breath, coughing, nausea, vomiting. Patient admits to pleuritic chest pain. Patient states she saw surgery team earlier and they said there's nothing to do surgically at this time , recommend to continue medical management of DVT PE. Echo Objective - Vital Signs/Intake and Output Vital Signs (last 24 hours): Temp Pulse Resp BP Pulse Ox 98.3 F 65 20 100/60 100 11/21/17 08:18 11/21/17 08:18 11/21/17 08:18 11/21/17 08:18 11/21/17 08:18 Intake and Output: 11/21/17 11/21/17 06:59 18:59 Intake Total 65 250 Balance 65 250 - Medications Medications: Current Medications Heparin Sodium/Sodium Chloride (Heparin 34729 Units/250ml 1/2 Normal Saline) 25 ,000 units in 250 mls @ 12.519 mls/hr IV .[id number] PRN; Protocol; 12 UNITS/KG/HR PRN Reason: ADJUST RATE PER PROTOCOL Last Admin: 11/21/17 10:46 Dose: 12 units/kg/hr, 12.519 mls/hr Ibuprofen (Motrin Tab) 800 mg PO TID PRN PRN Reason: Pain, moderate (4-7) Nicotine (Nicoderm Cq) 1 patch TD DAILY MEIR Last Admin: 11/21/17 10:07 Dose: 1 patch - Labs Labs: 11/21/17 07:09 11/21/17 07:09 PT 10.1 SECONDS (9.7-12.2) 11/20/17 12:48 INR 0.9 11/20/17 12:48 APTT 85 SECONDS (21-34) H 11/21/17 14:11 - Constitutional Appears: Non-toxic, No Acute Distress - Head Exam Head Exam: ATRAUMATIC, NORMAL INSPECTION, NORMOCEPHALIC - Eye Exam Eye Exam: EOMI, Normal appearance Pupil Exam: NORMAL ACCOMODATION, PERRL - ENT Exam ENT Exam: Mucous Membranes Moist - Neck Exam Neck Exam: Full ROM, Normal Inspection - Respiratory Exam Respiratory Exam: Clear to Ausculation Bilateral, NORMAL BREATHING PATTERN. absent: Accessory Muscle Use - Cardiovascular Exam Cardiovascular Exam: REGULAR RHYTHM, +S1, +S2 - GI/Abdominal Exam GI & Abdominal Exam: Soft, Normal Bowel Sounds. absent: Tenderness - Extremities Exam Extremities Exam: Full ROM, Tenderness (posterior right popliteal and right calf pain on palpation). absent: Pedal Edema - Back Exam Back Exam: Full ROM, NORMAL INSPECTION - Neurological Exam Neurological Exam: Alert, CN II-XII Intact, Oriented x3 - Psychiatric Exam Psychiatric exam: Normal Affect, Normal Mood - Skin Skin Exam: Dry, Intact, Normal Color, Warm Assessment and Plan - Assessment and Plan (Free Text) Assessment: 32 year old female s/p right knee arthroscopy 10/20/17 with new findings of right leg DVT and pulmonary embolus Pulmonary Embolus CTA chest: Pulmonary emboli within the right mid to lower lobe right pulmonary artery branches. No central pulmonary embolus evident. No focal consolidation. No pleural effusion. No pneumothorax. No suspicious pulmonary nodules measuring greater than 5 mm. (see full report) Patient received heparin bolus in ED and is on heparin drip EKG reviewed and is normal sinus with no changes from pre-op EKG performed on 10/17/17 will check echo to rule out right heart strain Pain: Motrin 800mg TID Pulmonology consult: Dr. Whitlock Right lower extremity DVT Outpatient LE venous doppler performed 11/20/17: right leg with totally occluding DVT of right popliteal, posterior tibial, peroneal veins with severe reduction of venous return. Left leg no evidence DVT (see full report) Patient on heparin drip Vascular surgery consulted, Dr. Ramirez- help appreciated R/O Hypercoaguability patient had provoking event- right knee arthroscopic surgery 10/20/17 with post- operative Lovenox for 14 days, however patient admits to occasional missed doses positive family history- niece with pulmonary embolus one year ago (considered secondary to OCP use) will order hypercoaguable workup except for protein C&S as she is already on heparin drip: factor V Leiden, prothrombin gene mutation, antiphospholipid antibody, BRIELLE w/ reflex f/u Echo to evaluate right heart strain. Heme-onc consult: Dr. Castellanos Urinary frequency first UA contaminated, will repeat urinalysis with culture Prophylactic measure heparin drip SCD to left leg only holding PT/OT at this time nicotine patch Pain: Motrin 800mg TID Plan and medical management discussed with attending physician
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
[2017-11-21 16:31] VITALS: BP 102/70; PULSE 78; TEMP 98.2; O2SAT 98
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
--- NOTE | 2017-11-21 18:17 | CP.PCM.PN ---
Subjective - Date & Time of Evaluation Date of Evaluation: 11/21/17 Time of Evaluation: 15:40 - Subjective Subjective: Has right leg pain. Objective - Vital Signs/Intake and Output Vital Signs (last 24 hours): Temp Pulse Resp BP Pulse Ox 98.2 F 78 20 102/70 98 11/21/17 15:30 11/21/17 15:30 11/21/17 15:30 11/21/17 15:30 11/21/17 15:30 Intake and Output: 11/21/17 11/21/17 06:59 18:59 Intake Total 65 250 Balance 65 250 - Medications Medications: Current Medications Apixaban (Eliquis) 10 mg PO ONCE ONE Stop: 11/21/17 19:01 Ibuprofen (Motrin Tab) 800 mg PO TID PRN PRN Reason: Pain, moderate (4-7) Last Admin: 11/21/17 15:07 Dose: 800 mg Nicotine (Nicoderm Cq) 1 patch TD DAILY MEIR Last Admin: 11/21/17 10:07 Dose: 1 patch - Labs Labs: 11/21/17 07:09 11/21/17 07:09 PT 10.1 SECONDS (9.7-12.2) 11/20/17 12:48 INR 0.9 11/20/17 12:48 APTT 85 SECONDS (21-34) H 11/21/17 14:11 - Head Exam Head Exam: ATRAUMATIC - Eye Exam Eye Exam: Normal appearance - ENT Exam ENT Exam: Mucous Membranes Dry - Respiratory Exam Respiratory Exam: NORMAL BREATHING PATTERN - Cardiovascular Exam Cardiovascular Exam: +S1, +S2 - GI/Abdominal Exam GI & Abdominal Exam: Normal Bowel Sounds Assessment and Plan (1) Pulmonary embolism Assessment & Plan: emolization from DVT provoked from immobility and recent orthopedic surgery therapeutic anticoagulation inherited thrombophilia w/u sent; outpatient f/u with me next week Status: Acute (2) Coagulopathy Assessment & Plan: anticoagulation Status: Acute (3) Tobacco abuse Assessment & Plan: smoking cessation Status: Acute
--- NOTE | 2017-11-21 20:26 | CARD ---
APPROVED REPORT EXAM: Two-dimensional and M-mode echocardiogram with Doppler and color Doppler. Other Information Quality : GoodRhythm : INDICATION Pulmonary Embolism RIGHT HEART STRAIN, HISTORY OF PE/DVT 2D DIMENSIONS IVSd0.8 (0.7-1.1cm)LVDd5.1 (3.9-5.9cm) PWd0.9 (0.7-1.1cm)LVDs3.4 (2.5-4.0cm) FS (%) 34.5 %LVEF (%)63.3 (>50%) M-Mode DIMENSIONS Left Atrium (MM)3.17 (2.5-4.0cm)Aortic Root3.07 (2.2-3.7cm) Aortic Cusp Exc.2.17 (1.5-2.0cm) Mitral Valve MV E Aybzsxwy22.8cm/sMV A Vpqyzbsj81.4cm/sE/A ratio1.3 TDI E/Lateral E'0.0E/Medial E'0.0 Tricuspid Valve TR Peak [id number]/sTR Peak [id number] LEFT VENTRICLE The left ventricle is normal size. There is normal left ventricular wall thickness. The left ventricular function is normal. The left ventricular ejection fraction is within the normal range. No regional wall motion abnormalities noted. The left ventricular diastolic function is normal. No left ventricle thrombus noted on this study. There is no ventricular septal defect visualized. There is no left ventricular aneurysm. There is no mass noted in the left ventricle. RIGHT VENTRICLE The right ventricle is normal size. There is normal right ventricular wall thickness. The right ventricular systolic function is normal. TAPSE NORMAL ATRIA The left atrium size is normal. The right atrium size is normal. The interatrial septum is intact with no evidence for an atrial septal defect. AORTIC VALVE The aortic valve is normal in structure and function. No aortic regurgitation is present. There is no aortic valvular stenosis. There is no aortic valvular vegetation. MITRAL VALVE The mitral valve is normal in structure and function. There is no evidence of mitral valve prolapse. There is no mitral valve stenosis. There is no mitral valve regurgitation noted. TRICUSPID VALVE The tricuspid valve is normal in structure and function. There is mild tricuspid regurgitation. Right ventricular systolic pressure is estimated at less than 30 mmHg. There is no tricuspid valve prolapse or vegetation. There is no tricuspid valve stenosis. PULMONIC VALVE The pulmonary valve is normal in structure and function. There is no pulmonic valvular regurgitation. There is no pulmonic valvular stenosis. GREAT VESSELS The aortic root is normal in size. The ascending aorta is normal in size. The pulmonary artery is normal. The IVC is normal in size and collapses >50% with inspiration. PERICARDIAL EFFUSION The pericardium appears normal. There is no pleural effusion. <Conclusion> The left ventricular function is normal. The left ventricular ejection fraction is within the normal range. No regional wall motion abnormalities noted. The right ventricular systolic function is normal. TAPSE NORMAL The aortic valve is normal in structure and function. The mitral valve is normal in structure and function. There is mild tricuspid regurgitation. Right ventricular systolic pressure is estimated at less than 30 mmHg.
--- NOTE | 2017-11-22 12:31 | CARD ---
APPROVED REPORT EKG Measurement Heart [id number] <Conclusion> Normal sinus rhythm with sinus arrhythmia Normal ECG
== END 2017-11-21 19:55 | disposition home or self-care (01) | DRG 299 ==
LOC: C.ER 10:56 → C.9E 16:40 → C.6T 20:35
PROVIDERS: ADMIT Hospitalist; ATTEND Hospitalist
DX: I82.431 Acute embolism and thrombosis of right popliteal vein (principal); I26.99 Other pulmonary embolism without acute cor pulmonale; D68.51 Activated protein C resistance; F17.210 Nicotine dependence, cigarettes, uncomplicated; Z79.01 Long term (current) use of anticoagulants; Z98.890 Other specified postprocedural states

== ENCOUNTER 2019-01-12 16:43 | Emergency (ER) | payer BC ==
[2019-01-12 16:43] VITALS: BMI 34.0
[2019-01-12 16:49] VITALS: BP 128/81; PULSE 100; RESP 15; TEMP 99.4; O2SAT 94
[2019-01-12] MEDS ORDERED: Amoxicillin-Clav 875-125 mg Tab PO STA (17:25)
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
[2019-01-12] MEDS ORDERED: Amoxicillin-Clav 875-125 mg Tab PO ONE (17:34)
== END 2019-01-12 17:34 | disposition home or self-care (01) ==
LOC: C.ER 16:43
DX: S09.22XA Traumatic rupture of left ear drum, initial encounter (principal); Y09 Assault by unspecified means